=== PATIENT | male | born 1940 | race Caucasian/White ===

== ENCOUNTER 2016-06-03 15:48 | Inpatient (IN) | payer MEDICARE, OTHER ==
[~2016-06-03] VITALS: Ht 182.9 cm; Wt 71.3 kg
[2016-06-03 15:55] VITALS: BP 137/79; PULSE 96; RESP 30; O2SAT 91
--- NOTE | 2016-06-03 16:01 | ED.REPORT ---
HPI-Dyspnea / Wheezing Date of Service Jun 03, 2016 ED Provider: Dr. Santa Espino Patient is a 76-year-old male with a hx of heart attack, who reports to the ED complaining of SOB for the past 2 weeks. He had an appointment with his PCP yesterday, Dr. Silver, and was sent here due to abnormal labs. Patient c/o associated intermittent cough, generalized weakness, and incontinence. He was able to take a nap earlier today but his SOB increases in severity when he lays down in bed. Patient c/o associated lower extremity edema which he has never experienced before. Patient denies fever, chills, chest pain, back pain, vomiting, and diarrhea. Nursing Notes Stated Complaint: SOB Chief Complaint: Respiratory Distress Nursing Notes Reviewed: Yes Allergies: Coded Allergies: No Known Allergies (Verified , 06/03/16) Uncoded Allergies: No Known Allergies (Allergy, Severe, 09/17/04) Scheduled Aspirin (Aspirin) 81 Mg Tablet 81 MG PO HS Doxazosin (Cardura) 8 Mg Tablet 8 MG PO HS General Time Seen by MD: 16:01 Chief Complaint Shortness of breath Hx Obtained From: Patient, Spouse Arrived By: Walk-in Sudden in Onset?: Yes Onset Occurred: More than a week ago... (2 weeks) Symptom Duration: Since onset Severity: Current: No pain currently Recent Healthcare: Recent doctor visit Similar Sx Previous: Yes Past Medical History Past Medical History heart attack Reports: Hypertension Past Surgical History stints Smoking History Unknown if Ever Smoker Social History Other Social History: Ambulatory Status Independent Review of Systems Constitutional: Reports: Weakness - generalized, Denies: Chills, Fever Respiratory: Reports: Non-productive cough, Shortness of breath Cardiovascular: Denies: Chest pain Musculoskeletal: Denies: Back pain Complete sys rev & neg: except as marked. GI: Denies: Diarrhea, Vomiting Male: Reports Incontinence Physical Exam Initial Vital Signs Vital Signs (First) Date Time Temp Pulse Resp B/P Pulse Ox O2 Delivery O2 Flow Rate FiO2 06/03/16 15:55 96 30 137/79 91 Room Air Initial VS: Reviewed, Vital signs normal Head / Eyes: Atraumatic, Normocephalic, PERRL ENT: Mucous membranes moist, Conjunctiva normal, No scleral icterus Lymphatic: No lymphadenopathy Skin: Warm, Dry, No cyanosis Neurologic: Alert, Oriented, Nonfocal Psychiatric: Mood/affect normal, Behavior normal, Normal thought content General/Constitutional: Awake, Alert, Cooperative Neck: Supple, No meningismus, Non-tender Neck Vascular: Positive: JVD moderate Resp Distress / Stridor: Positive: Resp distress mild Wheezing / Retractions: Positive: Wheezing expiratory Rales / Rhonchi: Positive: Rales bilateral up to 1/3 Cardiovascular: Heart rate NL, Regular rhythm, Heart sounds NL, No murmurs Lower Ext Edema: Positive: Bilateral 3+ Abdomen: Atraumatic, Soft, Non-tender, No guarding, No rebound, BS normoactive Interpretation & Diagnostics Lab Results Interpretation Result Diagram: 06/03/16 1616 06/03/16 1621 Test 06/03/16 16:16 06/03/16 16:21 White Blood Count 7.8th/mm3 (3.8-10.1) Red Blood Count 4.57mil/mm3 (4.40-5.80) Hemoglobin 14.4g/dL (13.8-17.2) Hematocrit 40.9% (41.0-50.0) Mean Corpuscular Volume 89.5fL (81-100) Mean Corpuscular Hemoglobin 31.5pg (27.0-35.0) Mean Corpuscular Hemoglobin Concent 35.2% (32.0-37.0) Red Cell Distribution Width 12.9% (12.3-15.4) Platelet Count 207bil/L (150-400) Neutrophils (%) (Auto) 70.1% (40-74) Lymphocytes (%) (Auto) 15.1% (14-46) Monocytes (%) (Auto) 11.8% (4-12) Eosinophils (%) (Auto) 1.7% (0-5) Basophils (%) (Auto) 0.9% (0-3) Magnesium Level 1.9mg/dL (1.6-2.6) Total Bilirubin 0.8mg/dL (0.0-1.2) Aspartate Amino Transf (AST/SGOT) 27U/L (0-50) Alanine Aminotransferase (ALT/SGPT) 30U/L (0-44) Alkaline Phosphatase 93U/L (25-160) Pro-B-Type Natriuretic Peptide 3898pg/mL (0-486) Total Protein 6.7g/dL (6.4-8.4) Albumin 3.7g/dL (3.4-5.0) Hold Saleh Top Tube Received (Received) ECG Interpretation ECG Interpretation: anterior lateral q-waves V1-V6 similar to EKG on 06/01/16 Interpreted by: ED physician Normal ECG Interpretation: Normal ECG w/ rate of... (90), Normal rate, Normal sinus rhythm, No acute ischemic changes X-Ray Chest Interpretation Chest Xray Interpretation: IMPRESSION: 1. Persistent right basilar radiopacities in slightly increased confluence of the left basilar radiopacities when compared with the prior study dated 06/01/16 suggesting worsening infection. 2. Apparent slight decrease in the size of the right pleural effusion which may be positional in nature. Dictated by: Mmai Pedersen M.D. on 06/03/2016 at 16:53 Approved by: Mami Pedersen M.D. on 06/03/2016 at 16:55 View: Portable Interpretation / Wet Read by: Interpret - Radiologist Re-Eval/Medical Decision Med Decision/Clinical Course The patient presents with respiratory distress, he was sent in by his urologist. The patient has not had any medical care and has significant cardiac history, he denies any chest pain. His exam is most consistent with congestive heart failure. Differential diagnoses considered were acute coronary syndrome, congestive heart failure, pneumonia, pulmonary embolus, and influenza. Patient was given Nitropaste and was feeling improved upon admission. He was also given a dose of Lasix in the emergency department. It is possible he had a coronary event couple weeks ago and then developed congestive heart failure although he does not recall having any chest pain. He has an abnormal EKG however we do not have going to compare with, so this could be from his [place] 10 years ago or if something occurred a couple weeks ago. Re-Evaluation/Progress : Time of Eval: 18:10 Re-Evaluation/Progress Note: Pt rechecked. Informed pt of need for admission due to hyponatremia and new onset chf. Blood pressure is slightly improved upon recheck. Pt understands and agrees with plan for admission. All questions addressed. Counseled Regarding: Diagnosis, Lab results, Need for admission Discharge & Departure Impression: Primary Impression: Hyponatremia Additional Impression: CHF (congestive heart failure) Congestive heart failure type: unspecified congestive heart failure type Congestive heart failure chronicity: unspecified congestive heart failure chronicity Qualified Code: I50.9 - Heart failure, unspecified Disposition: ADMITTED TO HOSPITAL Discharge Condition All VS Reviewed: Yes Condition: Stable Referrals: Quincy Avalos MD (PCP) Scribe Attestation Portion of this note were transcribed by Vanessa Kapadia. Dr. Srinivas Conde, personally performed the history, physical exam, and medical decision-making: I reviewed and confirmed the accuracy for the information in the transcribed note. Signed by: ximena Hughes, 06/03/16 0000 copies to: Quincy Avalos MD, Jena M MD Jun 03, 2016 16:01 VANESSA KAPADIA Jun 03, 2016 16:16 Re-Evaluation/Progress : Time of Eval: 18:10 Re-Evaluation/Progress Note: Pt rechecked. Informed pt of need for admission due to hyponatremia and new onset chf. Blood pressure is slightly improved upon recheck. Pt understands and agrees with plan for admission. All questions addressed. Counseled Regarding: Diagnosis, Lab results, Need for admission Discharge & Departure Impression: Primary Impression: Hyponatremia Additional Impression: CHF (congestive heart failure) Congestive heart failure type: unspecified congestive heart failure type Congestive heart failure chronicity: unspecified congestive heart failure chronicity Qualified Code: I50.9 - Heart failure, unspecified Disposition: ADMITTED TO HOSPITAL Discharge Condition All VS Reviewed: Yes Condition: Stable Referrals: Quincy Avalos MD (PCP) Scribkahlil Attestation Portion of this note were transcribed by Vanessa Kapadia. Dr. Srinivas Conde, personally performed the history, physical exam, and medical decision-making: I reviewed and confirmed the accuracy for the information in the transcribed note. Signed by: ximena Hughes, 06/03/16 0000 copies to: Quincy Avalos MD, Jena M MD Jun 03, 2016 16:01 VANESSA KAPADIA Jun 03, 2016 16:16
[2016-06-03] MEDS ORDERED: Nitroglycerin 2% 1 Gm Ointment TOPICAL ONE (16:10)
[2016-06-03 16:29] LABS: BASOPHILS % (AUTO) 0.9 % (0-3); EOSINOPHILS % (AUTO) 1.7 % (0-5); MONOCYTES % (AUTO) 11.8 % (4-12); Mean Corpuscular Hemoglobin 31.5 pg (27.0-35.0); Mean Corpuscular Volume 89.5 fL (81-100); NEUTROPHILS % (AUTO) 70.1 % (40-74); Platelet Count 207 bil/L (150-400)
[2016-06-03 17:01] LABS: TROPONIN T < 0.010 ug/L (0.0-0.011)
--- NOTE | 2016-06-03 17:04 | DRSVH ---
PROCEDURE: X-RAY CHEST ONE VIEW, PORTABLE ([id number]) INDICATIONS: SHORT OF BREATH TECHNIQUE: One view of the chest was acquired. COMPARISON: [facility], CR, XR CHEST 2VW, 06/01/2016, 14:57. FINDINGS: Surgical changes and devices: None. Lungs and pleura: Patchy pulmonary opacities are present in the bilateral lung bases. These are sligh tly increased in extent on the left when compared with the study dated 06/01/16. The small right pleur al effusion has decreased in size when compared with the prior study. Mediastinum: Mediastinal contours appear normal. Heart size is normal. Bones and chest wall: No suspicious bony lesions. Overlying soft tissues appear unremarkable. IMPRESSION: 1. Persistent right basilar radiopacities in slightly increased confluence of the left basilar radiop acities when compared with the prior study dated 06/01/16 suggesting worsening infection. 2. Apparent slight decrease in the size of the right pleural effusion which may be positional in natu re. Dictated by: Mami Pedersen M.D. on 06/03/2016 at 16:53 Approved by: Mami Pedersen M.D. on 06/03/2016 at 16:55
[2016-06-03 17:08] LABS: Magnesium 1.9 mg/dL (1.6-2.6)
[2016-06-03 17:13] VITALS: BP 124/74; PULSE 87; RESP 24; O2SAT 96
[2016-06-03] MEDS ORDERED: Furosemide 10 mg/mL 2 mL Inj IVPUSH ONE (17:50)
[2016-06-03] MEDS ORDERED: ASPI-973 PO (18:10)
[2016-06-03] MEDS ORDERED: CAR8A PO (18:10)
[2016-06-03 18:29] VITALS: BP 124/79; PULSE 86; RESP 25; O2SAT 94
--- NOTE | 2016-06-03 19:39 | PCM.HPMED ---
Subjective Date of Service Jun 03, 2016 Primary Provider: Admitting Physician: Kellen Ware MD Primary Care Physician: Quincy Avalos MD Attending Physician: Kellen Ware MD Chief Complaint: Shortness of breath H[facility] History of present illness 76-year-old man, 2 weeks of shortness of breath, being unable to lie flat and breathe well, edema, presents to ER with respiratory rate 30, 91% on room air. Associated cough, weakness, incontinence. No chest pain no back pain. concurrently he had been seen by Urologist for a refill of doxazosin that he had run out of since 03/2016. urologist noted the new edema ordered CXR and EKG at that time. Despite doxazosin now, ongoing nocturia wearing adult depends and poor uop. At the urologist visit 05/31/2016 he was told PVR was accepatble. baseline low BP at home but he has not seen PCP in several years. ongoing smoking, less the last 2- 3 days due to SOB and edema. dry cough, nonproductive, no sore throat. In the ER Lasix 20, aspirin 325, nitroglycerin 0.5, weight 84 kg, in 2003 83 kg , 2L O2 Review of Systems - none of the following - F/C/sick contact / wt change/ MARTINEZ / lightheaded / dizziness // acid reflux / n/v/diarrhea / bleeding/bruising / leg swelling / change in voiding / yeast infections / rash ambulates FAMILY HX CAD SOCIAL HX smoker MEDICATIONS Scheduled Aspirin (Aspirin) 81 Mg Tablet 81 MG PO HS Doxazosin (Cardura) 8 Mg Tablet 8 MG PO HS Past Medical/Surgical HX Occluded right carotid artery DE 2, diastolic/Systolic CHF / stents Cataracts BPH Right pleural effusion since 06/01/2016 Allergies Coded Allergies: No Known Allergies (Verified , 06/03/16) Uncoded Allergies: No Known Allergies (Allergy, Severe, 09/17/04) PMH Social History Hx Alcohol Use: No Hx Substance Use: No Hx Tobacco Use: No Smoking Status: Unknown if Ever Smoker Exam Vital Signs Vital Sign - Last Date Time Temp Pulse Resp B/P Pulse Ox O2 Delivery O2 Flow Rate FiO2 06/03/16 19:25 86 25 124/79 94 Room Air Lab and Diagnostics Labs Exam on admission 2L NC NAD A and O x 3 mood affect WNL NC/AT no icterus no injected eyes EOMI PERRL /no pharyngeal lesions/ no oral lesions / hearing aides in place Supple neck CTAB equal chest rise / no accessory muscle use / speaks in full sentences / no rrw RRR S1 S2 / no mrg / 2+ radial pulses Soft nt nd + BS no hepatosplenomegaly moderate edema legs and groin areas, no cyanosis no ecchymosis of lower extremities No rash / no jaundice , some excoriation of legs. EDOUARD EKG SR 90, poor R-wave progression, mildly widened QRS, no significant ST changes Trop 0.01 at 4 PM BNP 3898 LFT WNL Imaging PROCEDURE: X-RAY CHEST ONE VIEW, PORTABLE ([id number]) INDICATIONS: SHORT OF BREATH TECHNIQUE: One view of the chest was acquired. COMPARISON: [facility], CR, XR CHEST 2VW, 06/01/2016, 14:57. FINDINGS: Surgical changes and devices: None. Lungs and pleura: Patchy pulmonary opacities are present in the bilateral lung bases. These are slightly increased in extent on the left when compared with the study dated 06/01/16. The small right pleural effusion has decreased in size when compared with the prior study. Mediastinum: Mediastinal contours appear normal. Heart size is normal. Bones and chest wall: No suspicious bony lesions. Overlying soft tissues appear unremarkable. IMPRESSION: 1. Persistent right basilar radiopacities in slightly increased confluence of the left basilar radiopacities when compared with the prior study dated 06/01/16 suggesting worsening infection. 2. Apparent slight decrease in the size of the right pleural effusion which may be positional in nature. 2004 echo, moderate severe LV systolic dysfunction, EF 30-35%, extensive anterior apical and septal infarct, moderate mitral regurgitation, biatrial enlargement Result Diagram: 06/03/16 1616 06/03/16 1621 Assessment & Plan Active issues and reason for admission acute sCHF exacerbation w/ right pl effusion and bilateral pneumonia / infiltrates / smoker --pending resp viral procal sputum culture --azithro for now, no left shift and no leukocytosis, low threshold to dc --s/p lasix x 1 --duonebs --echo pending --lasix 40 Qam trial - dc doxazosin with BP monitoring Associated hyponatremia limit salt/water 1.5L bmp Q6, monitor Elevated glucose --SSI --A1c Chronic issues known prior to admission, present on admission CAD --cont asa BPH/LUTS --trial flomax, f/u Dr. Silver on discharge Diet DM Cardiac DVT prophylaxis lovenox Code full Disposition inpt status Assessment and plan were discussed with patient family. Kellen Ware MD Jun 03, 2016 19:39 Kellen Ware MD Jun 03, 2016 19:39
[2016-06-03] MEDS ORDERED: Ondansetron 2 mg/mL 2 mL Inj IVPUSH PRN (21:00)
[2016-06-03 21:18] VITALS: BP 135/79; PULSE 95; RESP 18; O2SAT 94
[2016-06-03] MEDS: Albuterol-Ipratropium 3 mL Inhalation Solution NEB SCH (21:44)
[2016-06-03 21:46] VITALS: PULSE 92; RESP 18; O2SAT 92
[2016-06-04] VITALS (14 sets, daily range): BP systolic 107–139; BP diastolic 60–80; PULSE 67–102; RESP 17–20; O2SAT 90–96
[2016-06-04 00:11] LABS: TROPONIN T 0.01 ug/L (0.0-0.011)
[2016-06-04] MEDS: Sodium Chloride LOK Flush 10 mL Syringe IVFLUSH SCH ×3 (00:30→16:00)
[2016-06-04 06:29] LABS: Mean Corpuscular Hemoglobin 31.4 pg (27.0-35.0); Mean Corpuscular Volume 91.3 fL (81-100)
[2016-06-04 07:19] LABS: TROPONIN T < 0.010 ug/L (0.0-0.011)
[2016-06-04] MEDS ORDERED: Furosemide 10 mg/mL 4 mL Inj IVPUSH SCH (08:30)
[2016-06-04] MEDS: Albuterol-Ipratropium 3 mL Inhalation Solution NEB SCH ×3 (08:41→20:30)
[2016-06-04] MEDS: Furosemide 10 mg/mL 4 mL Inj IVPUSH SCH ×2 (09:05→21:16)
--- NOTE | 2016-06-04 10:57 | PCM.PNMED ---
Subjective Date of Service Jun 04, 2016 Subjective I enjoyed meeting with Mr. Farias and his today. They have varying opinions about medical care and medication, despite being for over 50 years and otherwise getting along well. He is anti-medication and she is disappointed to report that he stopped all his CHF modifying medications several years ago because he felt like they were not doing anything. He then stopped following up with any tool carrier or primary care doctor for the same reasons. Now he is admitted with quite severe CHF and still maintains that he does not like medicines and does not think they should be taken. He is very anti-drug company, and believes the medical establishment is all compromised. Despite all that he is very pleasant and hoping to feel better with increasing doses of Lasix. He says he feels about the same today and that the shortness of breath prevented him sleeping well last night. His weight appears to be stable and so the 40 mg IV Lasix does not appear to have made much much of a dent in his CHF. Exam Vital Signs Vital Sign - Last Date Time Temp Pulse Resp B/P Pulse Ox O2 Delivery O2 Flow Rate FiO2 06/04/16 07:00 90 18 139/79 92 Nasal Cannula 2.00 06/04/16 06:57 36.2 Intake and Output 06/03/16 06/03/16 06/04/16 Cumulative From/Thru 15:00 23:00 07:00 06/03/16 15:55 - 06/04/16 06:05 Intake Total 380 ml 380 ml Output Total 1100 ml 1100 ml Balance -720 ml -720 ml Intake Oral 380 ml 380 ml Output Urine Total 1100 ml 1100 ml Exam Alert and oriented, no apparent distress Heart is regular rate and rhythm without murmur Lungs have left basilar crackles There is trace penile edema There is trace ankle edema bilaterally IVs and Medications Medications Reviewed: Medications were reviewed in detail Lab and Diagnostics Result Diagram: 06/04/16 0505 06/04/16 0505 Assessment & Plan Active issues and reason for admission acute sCHF exacerbation w/ right pl effusion and bilateral / infiltrates / smoker -- Respiratory viral panel and pneumococcal tests are negative -- Stop azithromycin based on normal white blood count, pro-calcitonin less than 0.05 and lack of infectious symptoms. --s/p lasix x 1, will increase dose to 80 mg twice a day IV --duonebs --echo pending --lasix 80 mg IV twice a day trial - dc doxazosin with BP monitoring -- Consider cardiology consultation. Troponins have been normal. -- Add DAVID inhibitor and beta ernesto at a pace that the patient will agree and accept Associated hyponatremia limit salt/water 1.5L bmp daily, monitor Elevated glucose --SSI --A1c is normal Chronic issues known prior to admission, present on admission CAD --cont asa BPH/LUTS --trial flomax, f/u Dr. Silver on discharge Diet DM Cardiac DVT prophylaxis lovenox Code full Disposition inpt status Assessment and plan were discussed with patient family. VTE Mechanical Devices: Venous Foot Pump Resuscitation Status: CPR: Attempt Resuscitation Gissell Gunn MD Jun 04, 2016 08:29
[2016-06-05] VITALS (13 sets, daily range): BP systolic 105–122; BP diastolic 58–78; PULSE 78–94; RESP 15–22; O2SAT 90–95
[2016-06-05] MEDS: Sodium Chloride LOK Flush 10 mL Syringe IVFLUSH SCH ×4 (00:30→23:41)
[2016-06-05 07:24] LABS: APPEARANCE,URINE CLEAR (CLEAR,HAZY); COLOR,URINE STRAW (YELLOW); OCCULT BLOOD,URINE TRACE (NEGATIVE); PH,URINE 5.5 (5.0-8.0); UROBILINOGEN,URINE NORMAL (NORMAL)
[2016-06-05] MEDS: Albuterol-Ipratropium 3 mL Inhalation Solution NEB SCH ×4 (07:27→20:17)
[2016-06-05] MEDS: Furosemide 10 mg/mL 4 mL Inj IVPUSH SCH (08:40)
--- NOTE | 2016-06-05 09:12 | PCM.PNMED ---
Subjective Date of Service Jun 05, 2016 Subjective He is in a much better mood today, now that he is breathing better. He has obviously been diuresing well but somehow is experiencing a flare of his wheezing. His oxygen this morning was turned up from 2-3 L. He is laughing and happy. His echocardiogram is still pending. Input was 500 with output of 3000 yesterday. Overnight he had a 16 beat run of V. tach so a magnesium level is pending for this morning. His electrolytes otherwise are normal. His BNP is still elevated at 5201. Exam Vital Signs Vital Sign - Last Date Time Temp Pulse Resp B/P Pulse Ox O2 Delivery O2 Flow Rate FiO2 06/05/16 07:28 89 22 91 Nasal Cannula 3.00 06/05/16 05:33 36.4 116/58 Intake and Output 06/04/16 06/04/16 06/05/16 Cumulative From/Thru 15:00 23:00 07:00 06/03/16 15:55 - 06/05/16 06:42 Intake Total 1000 ml 500 ml 1880 ml Output Total 1625 ml 3075 ml 5800 ml Balance -625 ml -2575 ml -3920 ml Intake Oral 1000 ml 500 ml 1880 ml Output Urine Total 1625 ml 3075 ml 5800 ml Exam Alert and oriented 3, in no apparent distress, obviously breathing better. Heart is regular rate and rhythm without murmur. Lungs have bilateral crackly wheezing. Extremities have no ankle edema. IVs and Medications Medications Reviewed: Medications were reviewed in detail Lab and Diagnostics Result Diagram: 06/04/16 0505 06/05/16 0500 Assessment & Plan Active issues and reason for admission acute sCHF exacerbation w/ right pl effusion and bilateral / infiltrates / smoker -- Respiratory viral panel and pneumococcal tests are negative -- Stopped azithromycin yesterday based on normal white blood count, pro- calcitonin less than 0.05 and lack of infectious symptoms. -- Doing better on the increased IV Lasix since yesterday, despite the rising BNP --duonebs --echo pending, was not able to be done yesterday --lasix 80 mg IV twice a day has been effective - dc doxazosin with BP monitoring -- Consider cardiology consultation. Troponins have been normal. -- Started on low-dose lisinopril and metoprolol yesterday. Associated hyponatremia -- Sodium now 131. limit salt/water 1.5L bmp daily, monitor Elevated glucose --SSI --A1c is normal Chronic issues known prior to admission, present on admission CAD --cont asa BPH/LUTS --trial flomax, f/u Dr. Silver on discharge Diet DM Cardiac DVT prophylaxis lovenox Code full Disposition inpt status, with discharge expected in the next 1-2 days. Assessment and plan were discussed with patient family. Link Gunn M.D. VTE Mechanical Devices: Intermittant Pneumatic CD Resuscitation Status: CPR: Attempt Resuscitation Gissell Gunn MD Jun 05, 2016 08:32
--- NOTE | 2016-06-05 20:52 | DRSVH ---
[facility] [address] [place] [address] Echocardiogram Report Name: CASPER TOLEDO CStudy Date : 06/05/2016 Height: 72 in Hospital Exam Location: [facility] Weight: 186 lb Gender: Male BSA: 2.1 m2 : 1940 Age: 76 yrs BP: 116/58 mmHg Reason For Study: CHF History: PTCA Ordering Physician: Performed By: Tarah Sow Referring Physician: Quincy Avalos Interpretation Summary Normal sinus rhythm. Mildly dilated LV; normal wall thickness; there is severe global hypokinesis with akinesis of the septum. The best motion is demonstrated by basal inferolateral segment. EF is 20-25%. Restrictive filling pattern consistent with advanced diastolic dysfunction. Severely dilated atria. Mitral valve leaflets are normal; there is moderate central MR. There is moderate central tricuspid regurgitation. Estimated PA systolic pressure is 58 mm Hg assuming RA pressure of 15 mm hg. Compared to prior study performed 2006 LV is more dilated. End diastolic dimension arun from 5.4 cm to 6.1 cm. EPSS arun from 1.2 cm to 2 cm consistent with worsening cardiomyopathy. EF is down from 30-35% to 20-25%. Diastolic dysfunction progressed from stage I to stage III. MR progressed from mild to moderate. Procedure: A two-dimensional transthoracic echocardiogram with color flow and Doppler was performed. The study quality was technically adequate. A contrast injection of Definity was performed to improve assessment of LV function. Contrast was injected into an intravenous site in the left arm. A total of 5 cc of contrast was given. Comparison is made with the echocardiogram of 12-06-2006. The patient was in sinus during the exam. The patient did well with the Definity Contrast. Left Ventricle: The left ventricle is mildly dilated. Left ventricular wall thickness is normal. Left ventricular systolic function is severely reduced. Right Ventricle: The right ventricle is normal in size and function. Atria: Both atria are severely dilated. There is no Doppler evidence for an atrial septal defect. Mitral Valve: The mitral valve leaflets appear mildly thickened, but open well. There is mild mitral annular calcification. There is moderate mitral regurgitation. Aortic Valve: The aortic valve is trileaflet. There is mild aortic valve sclerosis. The aortic valve opens well. No aortic regurgitation is present. Tricuspid Valve: The tricuspid valve leaflets are thin and pliable. There is moderate tricuspid regurgitation. The right ventricular systolic pressure is estimated at 58 mmHg assuming a right atrial pressure of 15 mm Hg. Pulmonic Valve: The pulmonic valve leaflets are thin and pliable; valve motion is normal. There is a trace or physiologic amount of pulmonic regurgitation. Great Vessels: The aortic root is normal size. The dimensions of the ascending aorta are normal. The pulmonary artery is normal size. The IVC is dilated (diameter is greater than 2.1 cm) and it collapses less than 50% with a sniff. This suggests a high right atrial pressure of 15 mm Hg. Pericardium/ Pleura There is no pericardial effusion. There is a small right-sided pleural effusion. MMode/2D Measurements & Calculations LVIDd: 6.1 cm LA dimension: 4.8 cm RA long axis LVOT diam LVIDs: 4.6 cm FS: 24.7 % LA A2 area: 32.9 cm RA area AoV Opening EPSS: 2.0 cm LA A4 area: 31.1 cm IVSd: 0.76 cm LA length (vol): 6.9 cm: 29.0 cm Ao root diam LVPWd: 0.81 cm LA vol: 125.9 ml RA vol LA vol index : 108.ml asc Aorta RA Diam: 2.8 cm : 52.6 mm/ IVC diam: 2.6 cm RVDd major : 7.2 cm LV hoffman. diameter/BSA LV sys. diameter/BSA RVD2 (mid) (cm/m^2): 3.0 (cm/m^2): 2.2 : 3.0 cm Doppler Measurements & Calculations Ao V2 max MV E max bertin MV E/A: 2.1 TR max bertin : 128.8 cm/sec : 126.9 cm/sec Med Peak E' Bertin : 326.0 cm/sec Ao max P.6 mmHgMV A max bertin TR max PG Ao mean PG : 61.0 cm/sec E/E' med: 26.7 : 42.5 mmHg MV P1/2t: 50.0 msec Lat Peak E' Bertin PA V2 max LVOT Max Bertin MR ERO: 0.27 cm2 : 69.2 cm/sec : 97.6 cm/sec E/E' lat: 18.6 PA mean PG CLAUDIA(I,D): 2.3 cm E/e' average : 0.96 mmHg sev ratio: 0.71 PA Accel Time MV A dur : 0.06 sec : 0.12 sec MV P1/2t max bertin Ao V2 mean LV V1 max PG MR flow rate : 96.3 cm/sec : 135.5 cm3/sec MVA(P1/2t): 4.4 cm2Ao V2 VTI: 22.4 cm LV V1 VTI MR PISA radius CLAUDIA(V,D): 2.5 cm2 : 15.9 cm PA V2 mean CLAUDIA indexed to BSA : 46.2 cm/sec (cm^2/m^2): 1.1 Reading Physician:08:51 PM
[2016-06-05] MEDS: Furosemide 10 mg/mL 2 mL Inj IVPUSH SCH (22:07)
[2016-06-06] VITALS (11 sets, daily range): BP systolic 93–133; BP diastolic 52–83; PULSE 75–94; RESP 16–20; O2SAT 92–97
[2016-06-06] MEDS: Albuterol-Ipratropium 3 mL Inhalation Solution NEB SCH ×4 (08:08→15:51)
[2016-06-06] MEDS: Furosemide 10 mg/mL 2 mL Inj IVPUSH SCH ×2 (09:23→20:44)
[2016-06-06] MEDS: Sodium Chloride LOK Flush 10 mL Syringe IVFLUSH SCH ×3 (09:24→20:45)
--- NOTE | 2016-06-06 19:12 | PCM.PNMED ---
Subjective Date of Service Jun 06, 2016 Subjective Patient reports that he is feeling significantly better than the previous day. He states that he does not feel as short of breath, and feels that his breathing is improved. Pt denies any chest pain or pressure. Pt states that he has not seen a doctor in over a decade, and is not interested in being seen by more doctors. Pt's states that he is improving overall. Exam Vital Signs Vital Sign - Last Date Time Temp Pulse Resp B/P Pulse Ox O2 Delivery O2 Flow Rate FiO2 06/06/16 17:53 36.6 87 16 121/66 92 Nasal Cannula 5.00 Intake and Output 06/05/16 06/05/16 06/06/16 Cumulative From/Thru 15:00 23:00 07:00 06/03/16 15:55 - 06/06/16 05:05 Intake Total 300 ml 2180 ml Output Total 1325 ml 7125 ml Balance -1025 ml -4945 ml Intake Oral 300 ml 2180 ml Output Urine Total 1325 ml 7125 ml Exam General: No acute distress, well-developed, well-nourished, appropriately interactive HEENT: Nasal cannula in place. Normocephalic, atraumatic. External ears without defect. Pupils equal, round, and reactive to light and accommodation. Anicteric sclerae, moist conjunctivae Neck: Supple with full range of motion. Cardiovascular: Regular rate and rhythm with no murmurs, rubs, or gallops appreciated Pulmonary: Crackles in the lower bases, no wheezing auscultated. Normal respiratory effort with no use of accessory muscles. Abdomen: Bowel tones present. Soft, nontender, nondistended. Extremities: No clubbing, cyanosis, edema Skin: Normal temperature, turgor, and texture; no rash, ulcers, or subcutaneous nodules appreciated. Psychiatric: Normal mood and affect. Alert and oriented to person, place, and time. IVs and Medications Medications Reviewed: Medications were reviewed in detail Lab and Diagnostics Result Diagram: 06/04/16 0505 06/06/16 0527 X-Rays, CTs and MRIs PROCEDURE: X-RAY CHEST ONE VIEW, PORTABLE INDICATIONS: SHORT OF BREATH TECHNIQUE: One view of the chest was acquired. COMPARISON: [facility], CR, XR CHEST 2VW, 06/01/2016, 14:57. FINDINGS: Surgical changes and devices: None. Lungs and pleura: Patchy pulmonary opacities are present in the bilateral lung bases. These are slightly increased in extent on the left when compared with the study dated 06/01/16. The small right pleural effusion has decreased in size when compared with the prior study. Mediastinum: Mediastinal contours appear normal. Heart size is normal. Bones and chest wall: No suspicious bony lesions. Overlying soft tissues appear unremarkable. IMPRESSION: 1. Persistent right basilar radiopacities in slightly increased confluence of the left basilar radiopacities when compared with the prior study dated 06/01/16 suggesting worsening infection. 2. Apparent slight decrease in the size of the right pleural effusion which may be positional in nature. Dictated by: Mami Pedersen M.D. on 06/03/2016 at 16:53 Approved by: Mami Pedersen M.D. on 06/03/2016 at 16:55 Cardiac Echo Impressions Interpretation Summary Normal sinus rhythm. Mildly dilated LV; normal wall thickness; there is severe global hypokinesis with akinesis of the septum. The best motion is demonstrated by basal inferolateral segment. EF is 20-25%. Restrictive filling pattern consistent with advanced diastolic dysfunction. Severely dilated atria. Mitral valve leaflets are normal; there is moderate central MR. There is moderate central tricuspid regurgitation. Estimated PA systolic pressure is 58 mm Hg assuming RA pressure of 15 mm hg. Compared to prior study performed 2006 LV is more dilated. End diastolic dimension arun from 5.4 cm to 6.1 cm. EPSS arun from 1.2 cm to 2 cm consistent with worsening cardiomyopathy. EF is down from 30-35% to 20-25%. Diastolic dysfunction progressed from stage I to stage III. MR progressed from mild to moderate. Assessment & Plan Acute systolic heart CHF exacerbation w/ right pl effusion -- Respiratory viral panel and pneumococcal tests are negative --Continue with duonebs --Echo demonstrating decreased EF of 20-25%, with worsening MR and TR --Continue lasix 80 mg IV twice a day --Cardiology consulted. -- Continue on low-dose lisinopril and metoprolol Acute hyponatremia, etiology unknown -- Sodium now 130. --Continue to limit salt/water 1.5L --bmp daily, monitor Elevated glucose --SSI --A1c is normal Chronic issues known prior to admission, present on admission CAD --cont asa BPH/LUTS --Continue flomax, f/u Dr. Silver on discharge Diet DM Cardiac DVT prophylaxis lovenox Code full VTE Mechanical Devices: Intermittant Pneumatic CD Resuscitation Status: CPR: Attempt Resuscitation Time spent 25 minutes Attending Statement I have seen and evaluated patient at bedside in addition to directly supervising care provided by resident physician. I agree with above documentation. Significant hypoxia , not improving with echocardiogram supporting a decline in cardiac functioning. Diuresis has not yet been effective in significantly improving respiratory function. Cardiology consults for further consideration of pt's respiratory failure, currently resistant to medical therapies. Pleural effusion noted previously on XR study may be revaluated as well for possible pleurocentesis should respiratory function remain poor. Dalila Johnson DO Jun 06, 2016 19:12 Zeus Chi DO Jun 06, 2016 22:24
[2016-06-07] VITALS (13 sets, daily range): BP systolic 98–128; BP diastolic 64–84; PULSE 60–93; RESP 16–26; O2SAT 89–93
[2016-06-07 07:36] LABS: BASOPHILS % (AUTO) 0.2 % (0-3); EOSINOPHILS % (AUTO) 0.1 % (0-5); MONOCYTES % (AUTO) 8.7 % (4-12); Mean Corpuscular Hemoglobin 31.2 pg (27.0-35.0); Mean Corpuscular Volume 91.3 fL (81-100); NEUTROPHILS % (AUTO) 84.1 % (40-74); Platelet Count 209 bil/L (150-400)
[2016-06-07] MEDS: Furosemide 10 mg/mL 2 mL Inj IVPUSH SCH (08:33)
[2016-06-07] MEDS: Sodium Chloride LOK Flush 10 mL Syringe IVFLUSH SCH ×3 (08:34→21:21)
[2016-06-07] MEDS: Albuterol-Ipratropium 3 mL Inhalation Solution NEB SCH ×3 (09:14→19:51)
--- NOTE | 2016-06-07 11:50 | PCM.CHPCAR ---
Consult Subjective Date of service Jun 07, 2016 Date of admit Jun 03, 2016 at 18:50 Provider Requesting Consult Primary Care Physician Primary Care Provider: Quincy Avalos MD Chief Complaint Shortness of breath and fatigue History of Present Illness Ld Farias is a 76 year old male with past medical history significant for 2 myocardial infarctions with PTCA with drug-eluting stent of acute margin of RCA bare metal stenting of proximal RCA in September 2003, heart failure with reduced ejection fraction, [id number] smoking history, and medication noncompliance who presents with 2 weeks of increasing shortness of breath. Patient states that over the last 2-3 weeks he has had increasing shortness of breath and inability to lie flat when sleeping. He has been sleeping in his recliner. He did note lower extremity edema prior to hospitalization which has since resolved. He also endorses a productive cough but denies fever, chills, nausea , vomiting, chest pain or pressure, palpitations, or dizziness. He also notes decreased appetite and increasing fatigue over the last 6 months to a year. He is unable to walk more than a block without becoming fatigued and notes that stairs have become more difficult for him. Patient's last cardiology visit was in [address] Conte at which time he was on lisinopril 20 mg daily, metoprolol succinate 25 mg daily, aspirin 81 mg daily, and simvastatin 10 mg daily. He states he has not taken these medications in over 2 years and has not followed with cardiology since 2011. A year ago he was started on doxazosin for BPH and continues on this and aspirin as his only two home medications. Since admission patient has been diuresed with furosemide 80 mg twice a day and is currently net -8 L during hospitalization. Patient continues to require supplemental O2 currently on 2 L nasal cannula. He does not use oxygen at home. He has never had PFTs or any pulmonology workup regardless of his 70-pack -year history. Repeat echocardiogram was completed that showed a worsening EF of 20-25% from prior of 35% when patient was compliant with medications. Review of Systems Review of Systems Comprehensive review of systems was conducted with the patient and found to be negative except as noted above in HPI. PMH Past Medical History # Coronary artery disease status post stenting # Acute heart failure with reduced ejection fraction # History of 2 myocardial infarctions # Mitral regurgitation # Right carotid artery occlusion per MRA in 2004 # Hyperlipidemia # Hypertension Past Surgical History # PTCA with drug-eluting stenting of acute margin of RCA and bare-metal stenting of proximal RCA September 2003. Hx Diabetes: NoBedside Blood Glucose: 113 Scheduled Aspirin (Aspirin) 81 Mg Tablet 81 MG PO HS (Reported) Doxazosin (Cardura) 8 Mg Tablet 8 MG PO HS (Reported) Current Inpatient Medications Current Medications Furosemide 80 mg BID IVPUSH Last administered on 06/07/16t 08:33; Admin Dose 80 MG; Start 06/05/16 at 20:30 Allergies: Coded Allergies: No Known Allergies (Verified , 06/03/16) Uncoded Allergies: No Known Allergies (Allergy, Severe, 09/17/04) Social History Occupation: retiredHx Alcohol Use: NoHx Substance Use: NoHx Tobacco Use: Yes Smoking Status: Current Every Day Smoker Years of Smokin Living Arrangement: with Family Exam Vital Signs Vital Sign - Last Date Time Temp Pulse Resp B/P Pulse Ox O2 Delivery O2 Flow Rate FiO2 06/07/16 05:38 36.6 60 16 118/78 92 Nasal Cannula 3.00 Intake and Output 06/06/16 06/06/16 06/07/16 Cumulative From/Thru 15:00 23:00 07:00 06/03/16 15:55 - 06/07/16 06:37 Intake Total 300 ml 558 ml 300 ml 3338 ml Output Total 1625 ml 300 ml 2200 ml 50691 ml Balance -1325 ml 258 ml -1900 ml -7912 ml Intake Oral 300 ml 558 ml 300 ml 3338 ml Output Urine Total 1625 ml 300 ml 2200 ml 44336 ml # Bowel Movements 1 0 1 Objective General: No acute distress, well-developed, well-nourished, appropriately interactive HEENT: Nasal cannula in place. Normocephalic, atraumatic. External ears without defect. Pupils equal, round, and reactive to light and accommodation. Moist conjunctivae. Oropharynx with moist mucosa. Cardiovascular: Regular rate and rhythm with no murmurs, rubs, or gallops appreciated. JVP measured at 10 cm. Pulmonary: Mild bilateral crackles noted at the base of lungs. No expiratory wheezes auscultated. Patient has a productive cough. Normal respiratory effort with no use of accessory muscles. Abdomen: Bowel tones present. Soft, nontender, nondistended. Extremities: No clubbing, cyanosis, edema, appreciated. Skin: Normal temperature, turgor, and texture; no rash, ulcers, or subcutaneous nodules appreciated. Neurology: No focal deficits. Normal gait. Psychiatric: Normal mood and affect. Alert and oriented to person, place, and time. Lab and Diagnostics Result Diagram: 06/07/16 0710 06/07/16 0710 X-Rays, CTs and MRIs X-RAY CHEST ONE VIEW, PORTABLE IMPRESSION: 1. Persistent right basilar radiopacities in slightly increased confluence of the left basilar radiopacities when compared with the prior study dated 06/01/16 suggesting worsening infection. 2. Apparent slight decrease in the size of the right pleural effusion which may be positional in nature. Dictated by: Mami Pedersen M.D. on 06/03/2016 at 16:53 Approved by: Mami Pedersen M.D. on 06/03/2016 at 16:55 Additional Diagnostics: Echocardiogram Report Interpretation Summary Normal sinus rhythm. Mildly dilated LV; normal wall thickness; there is severe global hypokinesis with akinesis of the septum. The best motion is demonstrated by basal inferolateral segment. EF is 20-25%. Restrictive filling pattern consistent with advanced diastolic dysfunction. Severely dilated atria. Mitral valve leaflets are normal; there is moderate central MR. There is moderate central tricuspid regurgitation. Estimated PA systolic pressure is 58 mm Hg assuming RA pressure of 15 mm hg. Compared to prior study performed 2006 LV is more dilated. End diastolic dimension arun from 5.4 cm to 6.1 cm. EPSS arun from 1.2 cm to 2 cm consistent with worsening cardiomyopathy. EF is down from 30-35% to 20-25%. Diastolic dysfunction progressed from stage I to stage III. MR progressed from mild to moderate. Reading Physician:08:51 PM Assessment & Plan Assessment Ld Farias is a 76 year old male with past medical history significant for 2 myocardial infarctions with PTCA with drug-eluting stent of acute margin of RCA bare metal stenting of proximal RCA in September 2003, heart failure with reduced ejection fracture, [id number] smoking history, and medication noncompliance who presents with 2 weeks of increasing shortness of breath. # Acute on systolic heart failure (heart failure with reduced ejection fraction) : secondary to ischemic cardiomyopathy as noted with anterior and lateral extensive Q waves, suggesting prior completed infarctions. Etiology of the exacerbation is noncompliance with medications for the last 3-4 years. Echo on 06/05/16 revealed an EF of 20-25% decrease from 30-35% from prior study. He is NYHA class IIIb, ACC stage C. He appears hypervolemic on exam today despite having good diuresis of 10kg weight loss since admission. Plan and recommendation: - Stop carvedilol and start metoprolol succinate 50 mg BID to reduce risk of bronchospasm in this patient who probably has significant COPD from 70 pack year smoking history - Continue lisinopril 2.5 mg daliy and consider increasing over the next few days - Switch furosemide from IV 80mg bid to oral 80mg bid - Start spironolactone 12.5 mg daily. - Suggest outpatient cardiac rehabilitation. - ICD placement not applicable at this time as patient has not been medically optimized. Patient anyways not interested in ICD placement # Coronary artery disease status post PTCA with drug-eluting stenting of acute margin of RCA and bare-metal stenting of proximal RCA September 2003. Plan: - Treatment as above. - Aspirin 81 mg daily. - Start atorvastatin 80 mg at bedtime # Non-sustained VT: noted on telemetry. - Metoprolol as above # Right carotid artery occlusion by MRA in 2004. Management as CAD above. # Hyperlipidemia: as above # Hypertension: as above. # Presumed COPD and smoking: patient has 70 pack year smoking history. He states that he has decided to quit smoking. Will monitor as outpatient and consider PFTs. VTE Mechanical Devices: Intermittant Pneumatic CD Resuscitation Status: CPR: Attempt Resuscitation Attending Statement I saw, examined, and evaluated the patient with Dr. Carmela Fuentes on 06/07/2016 and agree with the note as above along with my edits. CARMELA FUENTES DO Jun 07, 2016 08:55 Michoacano Camara MD Jun 07, 2016 11:50
--- NOTE | 2016-06-07 13:34 | DRSVH ---
PROCEDURE: X-RAY CHEST ONE VIEW, PORTABLE ([id number]) INDICATIONS: worsening cough TECHNIQUE: One view of the chest was acquired. COMPARISON: [facility], CR, XR CHEST 1VW (PORTABLE), 06/03/2016, 16:17. [facility], CR, XR CHEST 2VW, 06/01/2016, 14:57. FINDINGS: Surgical changes and devices: None. Lungs and pleura: Persistent pulmonary edema and increase in small right pleural effusion. Persisten t right basilar airspace opacity. No pneumothorax. Mediastinum: Mediastinal contours appear normal. Heart size is normal. Bones and chest wall: No suspicious bony lesions. Overlying soft tissues appear unremarkable. IMPRESSION: 1. Persistent pulmonary edema. 2. Slight increase in size of small right pleural effusion with right basilar airspace opacity consis tent with compressive atelectasis, patchy pulmonary edema and/or pneumonia. Continued radiographic huang rveillance to resolution is recommended. Dictated by: Lucien Blackburn RRA Interpreted: Kenisha Last MD on 06/07/2016 at 13:32 Transcribed by: MARILYN on 06/07/2016 at 13:34 Approved by: Kenisha Last M.D. on 06/08/2016 at 10:03
[2016-06-07] MEDS: MeTOProlol XL 50 mg ER24 Tablet PO SCH ×2 (14:24→20:30)
--- NOTE | 2016-06-07 17:50 | PCM.PNMED ---
Subjective Date of Service Jun 07, 2016 Subjective Patient reports no change in his symptoms from the previous day. He states that he continues to have some shortness of breath and does not feel he can discontinue the oxygen yet. Patient reports that he continues to have a productive cough, and feels quite fatigued today. Patient states that he has been tolerating his diet well, and denies any nausea vomiting or diarrhea. Patient states that last night was the first time he was able to get any sleep. Patient denies any chest pain or pressure. Exam Vital Signs Vital Sign - Last Date Time Temp Pulse Resp B/P Pulse Ox O2 Delivery O2 Flow Rate FiO2 06/07/16 05:38 36.6 60 16 118/78 92 Nasal Cannula 3.00 Intake and Output 06/06/16 06/06/16 06/07/16 Cumulative From/Thru 15:00 23:00 07:00 06/03/16 15:55 - 06/07/16 06:37 Intake Total 300 ml 558 ml 300 ml 3338 ml Output Total 1625 ml 300 ml 600 ml 9650 ml Balance -1325 ml 258 ml -300 ml -6312 ml Intake Oral 300 ml 558 ml 300 ml 3338 ml Output Urine Total 1625 ml 300 ml 600 ml 9650 ml # Bowel Movements 1 0 1 Exam General: No acute distress, well-developed, well-nourished, appropriately interactive HEENT: Nasal cannula in place Normocephalic, atraumatic. External ears without defect. Pupils equal, round, and reactive to light and accommodation. Moist conjunctivae. Oropharynx with moist mucosa. Cardiovascular: Regular rate and rhythm with no murmurs, rubs, or gallops appreciated Pulmonary: Mild bilateral crackles noted at the base of lungs. No expiratory wheezes auscultated. Patient has a productive cough.Normal respiratory effort with no use of accessory muscles. Abdomen: Bowel tones present. Soft, nontender, nondistended. Extremities: No clubbing, cyanosis, edema, appreciated. Skin: Normal temperature, turgor, and texture; no rash, ulcers, or subcutaneous nodules appreciated. Psychiatric: Normal mood and affect. Alert and oriented to person, place, and time. IVs and Medications Medications Reviewed: Medications were reviewed in detail Lab and Diagnostics Result Diagram: 06/04/16 0505 06/06/16 0527 X-Rays, CTs and MRIs PROCEDURE: X-RAY CHEST ONE VIEW, PORTABLE INDICATIONS: SHORT OF BREATH TECHNIQUE: One view of the chest was acquired. COMPARISON: [facility], CR, XR CHEST 2VW, 06/01/2016, 14:57. FINDINGS: Surgical changes and devices: None. Lungs and pleura: Patchy pulmonary opacities are present in the bilateral lung bases. These are slightly increased in extent on the left when compared with the study dated 06/01/16. The small right pleural effusion has decreased in size when compared with the prior study. Mediastinum: Mediastinal contours appear normal. Heart size is normal. Bones and chest wall: No suspicious bony lesions. Overlying soft tissues appear unremarkable. IMPRESSION: 1. Persistent right basilar radiopacities in slightly increased confluence of the left basilar radiopacities when compared with the prior study dated 06/01/16 suggesting worsening infection. 2. Apparent slight decrease in the size of the right pleural effusion which may be positional in nature. Dictated by: Mami Pedersen M.D. on 06/03/2016 at 16:53 Approved by: Mami Pedersen M.D. on 06/03/2016 at 16:55 Cardiac Echo Impressions Interpretation Summary Normal sinus rhythm. Mildly dilated LV; normal wall thickness; there is severe global hypokinesis with akinesis of the septum. The best motion is demonstrated by basal inferolateral segment. EF is 20-25%. Restrictive filling pattern consistent with advanced diastolic dysfunction. Severely dilated atria. Mitral valve leaflets are normal; there is moderate central MR. There is moderate central tricuspid regurgitation. Estimated PA systolic pressure is 58 mm Hg assuming RA pressure of 15 mm hg. Compared to prior study performed 2006 LV is more dilated. End diastolic dimension arun from 5.4 cm to 6.1 cm. EPSS arun from 1.2 cm to 2 cm consistent with worsening cardiomyopathy. EF is down from 30-35% to 20-25%. Diastolic dysfunction progressed from stage I to stage III. MR progressed from mild to moderate. Assessment & Plan Acute systolic heart CHF exacerbation likely secondary to noncompliance, present on admission -Echo demonstrating decreased EF of 20-25%, with worsening MR and TR -Cardiology consulted, we appreciate their input. -Per Cardiology, pt to start metoprolol 50mg BID, Lisinopril 2.5mg daily, Lasix 80mg BID PO, Spironolactone 12.5mg daily.Also recommend Cardiac Rehab -Patient has diuresed a net of 8 L during this hospitalization Acute hypoxia with bilateral basilar opacities seen on x-ray, present on admission, ongoing -Respiratory viral panel and pneumococcal tests are negative -Slight leukocytosis present today -Continue with duonebs -Continue to wean oxygen as able -CXR repeated today -Labs ordered CRP, Procalcitonin, UA -Possible cause could be infectious or COPD( pt has 70 pack year smoking hx and continues to smoke) -ID has been consulted -Pt continues to require supplemental O2, and does not use O2 at home Acute nonsustained asymptomatic VT Per cardiology patient to start metoprolol 50 mg twice a day Acute hyponatremia, etiology unknown, chronicity unknown -Continues to be low, but stable -No previous records to compare if this is baseline for patient, and he does not get regular medical care -Continue to limit salt/water 1.5L -Continue to monitor BMP daily Mildly elevated glucose, present on admission -A1C is normal -Recommend outpatient follow up Chronic issues CAD -Per Cardiology, continue 81 mg aspirin and start atorvastatin 80 mg daily at bedtime BPH/LUTS -Continue flomax, f/u Dr. Silver on discharge Diet DM Cardiac DVT prophylaxis lovenox Code full VTE Mechanical Devices: Intermittant Pneumatic CD Resuscitation Status: CPR: Attempt Resuscitation Attending Statement The patient was seen and examined together with Dr. Johnson on 06/07/2016 and I agree with the history, exam and plan as outlined in the note above. Dalila Johnson DO Jun 07, 2016 06:50 Don Pardo MD Jun 08, 2016 10:24
--- NOTE | 2016-06-07 20:29 | CONS ---
[address] [address] CONSULTATION REPORT PATIENT: CASPER TOLEDO : 1940 MR#: [id number] ADMIT: 06/03/2016 JOB ID: [id number] DATE OF SERVICE: 06/07/[address] Johnson for this consult. REASON FOR CONSULT: Possible pulmonary infection in a COPD patient. HISTORY OF PRESENT ILLNESS: The patient is a 76-year-old gentleman with longstanding history of cardiac disease as well as COPD. He reports he has been a significant cigarette smoker for 70 years and quit the day he was admitted to the hospital which was June 03, four days ago. He reports that he has been largely noncompliant with his cardiac drugs and has not had an appointment with his tinsel machine operator for followup for at least a couple of years. He notes that over the past couple of weeks he has been very short of breath. He is normally fairly short of breath and has difficulty with catching his breath even walking out to the mailbox, but it has been much worse the last couple of weeks. He is unable to lie down flat and breathe well and has noticed some edema in his lower extremities. He came to the ED with respiratory distress, a respiratory rate in the 30s, and the evidence of hypoxia. He notes he has had a bit of a cough in association with this, but it has largely been a dry cough. He reports he has been continuing to smoke right up until the day of admission, and that he has had no significant fevers, chills, sore throat, or sputum production. He has had no pleuritic chest pain or GI symptoms. He has had a variety of urologic issues for which he follows up with Dr. Silver, and he states that Dr. Silver of Urology is the only doctor he has seen in the past couple of years. He lives with his and he reports she has been well lately. PAST MEDICAL HISTORY: 1. Organic heart disease; a. Coronary artery disease status post [place] x2 and stents. b. Congestive heart failure with EF 20% to 25%. c. History of V-tach. d. Mitral regurgitation. 2. COPD. 3. Hyponatremia. 4. Hyperlipidemia. 5. Hypertension. 6. Right pleural effusion. SOCIAL HISTORY: The patient is a nonsmoker. The patient is an every day smoker for he says seven years up until this week. He is a nondrinker and has never used illicit drugs. 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 He said the stress of that eventually got to him and caused him to have a heart attack and he retired and moved to [place]. [place] was too rainy and snowy and they moved and he now lives in [place] with his . 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 FAMILY HISTORY: Negative for tuberculosis though he does have a 1st degree family history of coronary artery disease. REVIEW OF SYSTEMS: The patient denies any ongoing headache. He denies visual change. He has no intraoral or pharyngeal complaints though he does note he is edentulous and uses false teeth, but no sore throat, odynophagia or dysphagia. He has noticed no swelling in his lymph nodes. He has been short of breath and has had an intermittent dry cough and that has been going on for a long time but worse the last couple of weeks. No recent chest pain. No nausea, vomiting, or diarrhea. He notes he has an abdominal hernia, but it is asymptomatic and he has never chosen to have it repaired. He sometimes has trouble with urinary incontinence and has to get up many times at night to urinate and is the reason he sees Dr. Silver of Urology. He notes that he has had some swelling in his legs, but it is better since he has been here in the hospital the past few days. He states that he has reasonable strength in his lower extremities but cannot walk too far primarily because he is limited by his respiratory status. Remainder of the review of systems is negative. PHYSICAL EXAMINATION: Reveals an afebrile gentleman, temperature 36.4, pulse 90, respiratory rate 18, blood pressure 106/65, saturating 92% on 3 L. Examination of the head reveals no evidence of acute trauma nor is there any temporal wasting. His conjunctivae are slightly pale but without any notable scleral abnormalities. Nose normal. Oral cavity is edentulous, but there is no evidence of pharyngitis or thrush. His neck is supple. There is no adenopathy. His lungs are notable for rales about a quarter of the way up both lung [place]. Cardiac tones: Regular rate and rhythm. There is a 2/6 murmur heard along the left lower sternal border. The abdomen is slightly protuberant, soft and nontender. I fail to appreciate the hernia he mentions. His scrotum and penis are normal. A Kimble catheter is present. There is no femoral or inguinal adenopathy. His lower extremities are without evidence of synovitis, cellulitis or edema. His torso was also free of any cellulitis. His legs are reasonably strong bilaterally as are his upper extremities. LABORATORIES: Include a white count that was 7800 when he came in. It is 12,000 now. The white blood count differential is slightly left shifted with 84% segs. His creatinine is 0.67. His LFTs are normal. CRP 1.2. BNP approximately 7000. Albumin 3.8. Procalcitonin essentially 0 times two separate measurements. Urinalysis without white cells. Serologies include negative urine, Legionella and pneumococcal screens. Sputum sample was obtained. It had many polys and some mixed jeffry. That was done on June 06. A respiratory viral PCR panel is negative. No blood cultures have been done nor do I think any are indicated. He has had two chest x-rays since admission. One shows a right pleural effusion with some bilateral patchy pulmonary opacities in the bases. A repeat done today shows patchy pulmonary edema and interval increase in the size of the small right pleural effusion with possible compressive atelectasis or pneumonia. IMPRESSION: This patient has been consistently afebrile and I am not certain I mentioned his vital signs today, but he has been afebrile since admission. He denies having any fevers or chills. He has no productive cough. His chest x-ray, which I reviewed, could easily be interpreted as just some pulmonary edema with atelectasis, and his procalcitonin is negative times two. I see no reason to implicate pneumonia as part of this patient's problems here in the hospital. He certainly could have an exacerbation of chronic obstructive pulmonary disease which could have some bacterial component to it, but I do not think that an infection has any significant role with respect to what is going on here. I do note the patient did receive a couple of doses of azithromycin since he has been here, but I do not believe that any other additional antibiotics are indicated at this time. RECOMMENDATIONS: 1. No antibiotics. 2. It may be reasonable to repeat a CBC and one more procalcitonin, but assuming those are negative and the patient continues to be afebrile and reasonably comfortable, I am pretty confident that he does not have a significant pulmonary or any infection and that his problems are pretty exclusively on the basis of his severely depressed ejection fraction combined with COPD. 3. ID will go ahead and sign off at this time. Thank you for the consult. Please do not hesitate to call if there are additional questions about this or any other patient.
[2016-06-08] VITALS (14 sets, daily range): BP systolic 77–112; BP diastolic 46–78; PULSE 68–121; RESP 18–22; O2SAT 91–97
[2016-06-08] MEDS: Albuterol-Ipratropium 3 mL Inhalation Solution NEB SCH ×4 (06:00→19:43)
[2016-06-08 06:20] LABS: BASOPHILS % (AUTO) 0.1 % (0-3); EOSINOPHILS % (AUTO) 0.3 % (0-5); MONOCYTES % (AUTO) 8.4 % (4-12); Mean Corpuscular Hemoglobin 31.4 pg (27.0-35.0); Mean Corpuscular Volume 92.7 fL (81-100); NEUTROPHILS % (AUTO) 82.3 % (40-74); Platelet Count 191 bil/L (150-400)
[2016-06-08] MEDS: Sodium Chloride LOK Flush 10 mL Syringe IVFLUSH SCH ×2 (08:58→16:14)
[2016-06-08] MEDS: MeTOProlol XL 50 mg ER24 Tablet PO SCH (09:03)
--- NOTE | 2016-06-08 09:08 | PCM.PNCARD ---
Subjective Date of service Jun 08, 2016 Chief Complaint Shortness of breath and fatigue History of Present Illness Ld Farias is a 76 year old male with past medical history significant for 2 myocardial infarctions with PTCA with drug-eluting stent of acute margin of RCA bare metal stenting of proximal RCA in September 2003, heart failure with reduced ejection fracture, [id number] smoking history, and medication noncompliance who presents with 2 weeks of increasing shortness of breath. Yesterday patient had Kimble catheter placed due to PVR of 1400 mls. Patient had no acute events overnight and slept on 4L nasal canula. No VT noted on telemetry overnight. Today patient has no complaints. He states he would like to get up and walk. He denies and shortness of breath, chest pain, abdominal pain, palpitations. UOP of 4L in last 24 hours. Cumulatively -9.4L during hospitalization. # Acute on systolic heart failure (heart failure with reduced ejection fraction) # Coronary artery disease status post PTCA with drug-eluting stenting of acute margin of RCA and bare-metal stenting of proximal RCA September 2003 # Non-sustained VT # Right carotid artery occlusion by MRA in 2004 # Hyperlipidemia # Hypertension # Presumed COPD and smoking 11-point ROS: 11-point Review of Systems negative Exam Vital Signs Vital Sign - Last Date Time Temp Pulse Resp B/P Pulse Ox O2 Delivery O2 Flow Rate FiO2 06/08/16 08:31 36.5 83 21 104/62 93 Nasal Cannula 4.00 Intake and Output 06/07/16 06/07/16 06/08/16 Cumulative From/Thru 15:00 23:00 07:00 06/03/16 15:55 - 06/08/16 06:53 Intake Total 650 ml 250 ml 4238 ml Output Total 1800 ml 600 ml 11094 ml Balance -1150 ml -350 ml -9412 ml Intake Oral 650 ml 250 ml 4238 ml Output Urine Total 1800 ml 600 ml 94118 ml # Voids 1 1 # Bowel Movements 0 1 Additional Information: General: No acute distress, well-developed, well-nourished, appropriately interactive HEENT: Nasal cannula in place. Normocephalic, atraumatic. External ears without defect. Pupils equal, round, and reactive to light and accommodation. Moist conjunctivae. Oropharynx with moist mucosa. Cardiovascular: Regular rate and rhythm with no murmurs, rubs, or gallops appreciated. JVP measured at 8 cm. Pulmonary: Mild bilateral crackles noted at the base of lungs improved from yesterday. No expiratory wheezes auscultated. Patient has a productive cough. Normal respiratory effort with no use of accessory muscles. Abdomen: Bowel tones present. Soft, nontender, nondistended. Extremities: No clubbing, cyanosis, edema, appreciated. Skin: Normal temperature, turgor, and texture; no rash, ulcers, or subcutaneous nodules appreciated. Neurology: No focal deficits. Normal gait. Psychiatric: Normal mood and affect. Alert and oriented to person, place, and time. Lab and Diagnostics Result Diagram: 06/08/1653406/08/16534 X-Rays, CTs and MRIs X-RAY CHEST ONE VIEW, PORTABLE IMPRESSION: 1. Persistent right basilar radiopacities in slightly increased confluence of the left basilar radiopacities when compared with the prior study dated 06/01/16 suggesting worsening infection. 2. Apparent slight decrease in the size of the right pleural effusion which may be positional in nature. Dictated by: Mami Pedersen M.D. on 06/03/2016 at 16:53 Approved by: Mami Pedersen M.D. on 06/03/2016 at 16:55 Echocardiogram Report Interpretation Summary Normal sinus rhythm. Mildly dilated LV; normal wall thickness; there is severe global hypokinesis with akinesis of the septum. The best motion is demonstrated by basal inferolateral segment. EF is 20-25%. Restrictive filling pattern consistent with advanced diastolic dysfunction. Severely dilated atria. Mitral valve leaflets are normal; there is moderate central MR. There is moderate central tricuspid regurgitation. Estimated PA systolic pressure is 58 mm Hg assuming RA pressure of 15 mm hg. Compared to prior study performed 2006 LV is more dilated. End diastolic dimension arun from 5.4 cm to 6.1 cm. EPSS arun from 1.2 cm to 2 cm consistent with worsening cardiomyopathy. EF is down from 30-35% to 20-25%. Diastolic dysfunction progressed from stage I to stage III. MR progressed from mild to moderate. Reading Physician:08:51 PM Assessment & Plan Assessment Ld Farias is a 76 year old male with past medical history significant for 2 myocardial infarctions with PTCA with drug-eluting stent of acute margin of RCA bare metal stenting of proximal RCA in September 2003, heart failure with reduced ejection fracture, [id number] smoking history, and medication noncompliance who presents with 2 weeks of increasing shortness of breath. # Acute on systolic heart failure (heart failure with reduced ejection fraction) : secondary to ischemic cardiomyopathy as noted with anterior and lateral extensive Q waves, suggesting prior completed infarctions. Etiology of the exacerbation is noncompliance with medications for the last 3-4 years. Echo on 06/05/16 revealed an EF of 20-25% decrease from 30-35% from prior study. He is NYHA class IIIb, ACC stage C. He appears hypervolemic on exam today despite having good diuresis of 10kg weight loss since admission. Plan and recommendation: - Stop carvedilol and start metoprolol succinate 50 mg BID to reduce risk of bronchospasm in this patient who probably has significant COPD from 70 pack year smoking history - Continue lisinopril 2.5 mg daily and consider increasing over the next few days - Continue furosemide 80 mg BID. Consider decreasing dose to 40 mg BID tomorrow. - Start spironolactone 12.5 mg daily. - Suggest outpatient cardiac rehabilitation. - ICD placement not applicable at this time as patient has not been medically optimized. Patient anyways not interested in ICD placement - Patient's blood pressure in the low 100s systolic would like to monitor BP when patient is walking to make sure there is no sign of orthostatic hypotension with addition of new medications. # Coronary artery disease status post PTCA with drug-eluting stenting of acute margin of RCA and bare-metal stenting of proximal RCA September 2003. Plan: - Treatment as above. - Aspirin 81 mg daily. - Start atorvastatin 80 mg at bedtime # Non-sustained VT: noted on telemetry. - Metoprolol as above # Right carotid artery occlusion by MRA in 2004. Management as CAD above. # Hyperlipidemia: as above # Hypertension: as above. # Presumed COPD and smoking: patient has 70 pack year smoking history. He states that he has decided to quit smoking. Will monitor as outpatient and consider PFTs. As discussed with primary team, Dr. Johnson, would suggest an O2 sat goal of 88-92%. Problems: Pain Evaluation: Adequate Pain Control GI Prophylaxis: Not indicated VTE Prophylaxis: Sub-Q Enoxaparin VTE Mechanical Devices: Intermittant Pneumatic CD Resuscitation Status: CPR: Attempt Resuscitation CARMELA FUENTES DO Jun 08, 2016 09:08
[2016-06-08] MEDS ORDERED: Potassium Chloride 20 mEq SR Tablet PO ONE (11:20)
[2016-06-08] MEDS ORDERED: DEXTROSE IV ONE ×2 (11:25)
[2016-06-08] MEDS ORDERED: POTASSIUM CHLORIDE IV ONE ×2 (11:25)
[2016-06-08] MEDS ORDERED: 0.9% Sodium Chloride 250 ML ONE (13:09)
--- NOTE | 2016-06-08 14:17 | PCM.PNMED ---
Subjective Date of Service Jun 08, 2016 Subjective Patient reports that he is feeling better today. He states that he is quite tired, but does feel improved from the previous day. Patient reports that he understands that he will need to get a primary care doctor and start following up with a powder press operator. Pt states that he understands that he needs to work on his health to keep him out of the hospital. Per telemetry, patient has not experienced any further episodes of non- sustained vtach. Pt has had intermittent PVCs. Exam Vital Signs Vital Sign - Last Date Time Temp Pulse Resp B/P Pulse Ox O2 Delivery O2 Flow Rate FiO2 06/08/16 05:16 36.6 68 18 110/76 96 Nasal Cannula 3.00 Intake and Output 06/07/16 06/07/16 06/08/16 Cumulative From/Thru 15:00 23:00 07:00 06/03/16 15:55 - 06/08/16 06:53 Intake Total 650 ml 250 ml 4238 ml Output Total 1800 ml 600 ml 15969 ml Balance -1150 ml -350 ml -9412 ml Intake Oral 650 ml 250 ml 4238 ml Output Urine Total 1800 ml 600 ml 18608 ml # Voids 1 1 # Bowel Movements 0 1 Exam General: No acute distress, well-developed, well-nourished, appropriately interactive HEENT: Nasal cannula in place Normocephalic, atraumatic. External ears without defect. Pupils equal, round, and reactive to light and accommodation. Moist conjunctivae. Oropharynx with moist mucosa. Cardiovascular: Regular rate and rhythm with no murmurs, rubs, or gallops appreciated Pulmonary: Mild bilateral crackles noted at the base of lungs-slightly less than previous examination. No expiratory wheezes auscultated. Patient has a productive cough.Normal respiratory effort with no use of accessory muscles. Abdomen: Hernia noted superior to the umbilicus, hernia is non-tender with palpation. Bowel tones present. Soft, nontender, nondistended. Extremities: No clubbing, cyanosis, edema, appreciated. Skin: Normal temperature, turgor, and texture; no rash, ulcers, or subcutaneous nodules appreciated. Psychiatric: Normal mood and affect. Alert and oriented to person, place, and time. IVs and Medications Medications Reviewed: Medications were reviewed in detail Lab and Diagnostics Result Diagram: 06/08/16 0535 06/08/16 0535 X-Rays, CTs and MRIs PROCEDURE: X-RAY CHEST ONE VIEW, PORTABLE INDICATIONS: SHORT OF BREATH TECHNIQUE: One view of the chest was acquired. COMPARISON: [facility], CR, XR CHEST 2VW, 06/01/2016, 14:57. FINDINGS: Surgical changes and devices: None. Lungs and pleura: Patchy pulmonary opacities are present in the bilateral lung bases. These are slightly increased in extent on the left when compared with the study dated 06/01/16. The small right pleural effusion has decreased in size when compared with the prior study. Mediastinum: Mediastinal contours appear normal. Heart size is normal. Bones and chest wall: No suspicious bony lesions. Overlying soft tissues appear unremarkable. IMPRESSION: 1. Persistent right basilar radiopacities in slightly increased confluence of the left basilar radiopacities when compared with the prior study dated 06/01/16 suggesting worsening infection. 2. Apparent slight decrease in the size of the right pleural effusion which may be positional in nature. Dictated by: Mami Pedersen M.D. on 06/03/2016 at 16:53 Approved by: Mami Pedersen M.D. on 06/03/2016 at 16:55 Cardiac Echo Impressions Interpretation Summary Normal sinus rhythm. Mildly dilated LV; normal wall thickness; there is severe global hypokinesis with akinesis of the septum. The best motion is demonstrated by basal inferolateral segment. EF is 20-25%. Restrictive filling pattern consistent with advanced diastolic dysfunction. Severely dilated atria. Mitral valve leaflets are normal; there is moderate central MR. There is moderate central tricuspid regurgitation. Estimated PA systolic pressure is 58 mm Hg assuming RA pressure of 15 mm hg. Compared to prior study performed 2006 LV is more dilated. End diastolic dimension arun from 5.4 cm to 6.1 cm. EPSS arun from 1.2 cm to 2 cm consistent with worsening cardiomyopathy. EF is down from 30-35% to 20-25%. Diastolic dysfunction progressed from stage I to stage III. MR progressed from mild to moderate. Assessment & Plan Acute systolic heart CHF exacerbation likely secondary to noncompliance, present on admission -Echo demonstrating decreased EF of 20-25%, with worsening MR and TR -Cardiology consulted, we appreciate their input. -Per Cardiology, pt to start metoprolol 50mg BID, Lisinopril 2.5mg daily, Decrease Lasix to 40mg BID PO on 06/09, Spironolactone 12.5mg daily.Also recommend Cardiac Rehab -Patient has diuresed a net of 8 L during this hospitalization -Given new medications, we will check orthostatic blood pressures today -Per Cardiology pt would likely benefit from Cardiac Rehab -Physical therapy to evaluate pt this AM Acute hypoxic respiratory failure with bilateral basilar opacities seen on x-ray , present on admission, ongoing -Respiratory viral panel and pneumococcal tests are negative -Slight leukocytosis present today -Continue with duonebs -CXR 06/07- demonstrating "Persistent pulmonary edema and interval increase in size of small right pleural effusion with persistent right basilar airspace opacity consistent with compressive atelectasis, patchy pulmonary edema and/or pneumonia." -Possible cause could be COPD( pt has 70 pack year smoking hx and continues to smoke) -ID has been consulted, and they do not suspect infectious cause, and believe issue is more likely a combination of COPD and CHF -Pt continues to require supplemental O2, and does not use O2 at home. Considering that pt may need to be sent home on supplemental oxygen-will have Respiratory Therapy assess the patient for this. Acute nonsustained asymptomatic VT Per cardiology patient to start metoprolol 50 mg twice a day -Per Telemetry, pt did not had any episodes of VT overnight Acute hypokalemia likely secondary to diuresis, not present on admission, ongoing -Pt given IV KCL 20, and also given PO 20meq potassium -We will recheck level at 5pm and in the AM -Will start patient on daily potassium, as he will be discharging on lasix. Acute hyponatremia, etiology unknown, chronicity unknown -Continues to be low, but stable -No previous records to compare if this is baseline for patient, and he does not get regular medical care -Continue to limit salt/water 1.5L -Continue to monitor BMP daily Mildly elevated glucose, present on admission -A1C is normal -Recommend outpatient follow up Chronic issues CAD -Per Cardiology, continue 81 mg aspirin and start atorvastatin 80 mg daily at bedtime BPH/LUTS -Continue flomax, f/u Dr. Silver on discharge Diet DM Cardiac DVT prophylaxis lovenox Code full VTE Mechanical Devices: Intermittant Pneumatic CD Resuscitation Status: CPR: Attempt Resuscitation Attending Statement The patient was seen and examined together with Dr. Johnson on 06/08/2016 and I agree with the history, exam and plan as outlined in the note above. Dalila Johnson DO Jun 08, 2016 06:59 Don Pardo MD Jun 09, 2016 10:12
[2016-06-08] MEDS ORDERED: MeTOProlol XL 25 mg ER24 Tablet PO ONE (16:05)
[2016-06-08] MEDS ORDERED: MeTOProlol XL 50 mg ER24 Tablet PO SCH (20:30)
[2016-06-08] MEDS ORDERED: 0.9% Sodium Chloride 250 ML IV ONE (21:05)
[2016-06-09] VITALS (13 sets, daily range): BP systolic 98–116; BP diastolic 50–81; PULSE 92–130; RESP 18–25; O2SAT 91–97
[2016-06-09] MEDS: Sodium Chloride LOK Flush 10 mL Syringe IVFLUSH SCH ×4 (00:30→21:07)
[2016-06-09 01:13] LABS: APPEARANCE,URINE CLEAR (CLEAR,HAZY); COLOR,URINE YELLOW (YELLOW); OCCULT BLOOD,URINE LARGE (NEGATIVE); PH,URINE 6.5 (5.0-8.0)
[2016-06-09 06:46] LABS: BASOPHILS % (AUTO) 0.3 % (0-3); MONOCYTES % (AUTO) 8.1 % (4-12); Mean Corpuscular Hemoglobin 31.4 pg (27.0-35.0); Mean Corpuscular Volume 94.7 fL (81-100); NEUTROPHILS % (AUTO) 80.6 % (40-74); Platelet Count 192 bil/L (150-400)
[2016-06-09] MEDS: Albuterol-Ipratropium 3 mL Inhalation Solution NEB SCH ×4 (07:44→20:27)
[2016-06-09] MEDS: Potassium Chloride 20 mEq SR Tablet PO SCH (08:00)
--- NOTE | 2016-06-09 08:37 | PCM.PNCARD ---
Subjective Date of service Jun 09, 2016 Chief Complaint Shortness of breath and fatigue History of Present Illness Ld Farias is a 76 year old male with past medical history significant for 2 myocardial infarctions with PTCA with drug-eluting stent of acute margin of RCA bare metal stenting of proximal RCA in September 2003, heart failure with reduced ejection fracture, [id number] smoking history, and medication noncompliance who presents with 2 weeks of increasing shortness of breath. Yesterday patient converted to AF with HR in the 120-140s. Additional dose of metoprolol given and BID dosing increased. Patient's evening dose held for hypotension. Patient remained tachycardic but asymptomatic throughout the night. Today patient has no complaints. Continues to be in AF with HR in the 130s. Denies any palpatations, chest pain, shortness of breath, or dizziness. UOP of 1200 mL in last 24 hours. Cumulatively -9.2L during hospitalization. # Acute on systolic heart failure (heart failure with reduced ejection fraction) # Coronary artery disease status post PTCA with drug-eluting stenting of acute margin of RCA and bare-metal stenting of proximal RCA September 2003 # Atrial fibrillation with RVR # Non-sustained VT # Right carotid artery occlusion by MRA in 2004 # Hyperlipidemia # Hypertension # Presumed COPD and smoking 11-point ROS: 11-point Review of Systems negative Exam Vital Signs Vital Sign - Last Date Time Temp Pulse Resp B/P Pulse Ox O2 Delivery O2 Flow Rate FiO2 06/09/16 05:09 36.6 20 96 Nasal Cannula 4.00 06/09/16 04:58 130 98/50 Intake and Output 06/08/16 06/08/16 06/09/16 Cumulative From/Thru 15:00 23:00 07:00 06/03/16 15:55 - 06/09/16 06:41 Intake Total 844 ml 350 ml 5432 ml Output Total 600 ml 400 ml 65278 ml Balance 244 ml -50 ml -9218 ml Intake Oral 500 ml 100 ml 4838 ml IV Total 344 ml 250 ml 594 ml Output Urine Total 600 ml 400 ml 30828 ml # Voids 1 # Bowel Movements 1 Additional Information: General: No acute distress, well-developed, well-nourished, appropriately interactive HEENT: Nasal cannula in place. Normocephalic, atraumatic. External ears without defect. Pupils equal, round, and reactive to light and accommodation. Moist conjunctivae. Oropharynx with moist mucosa. Cardiovascular: Irregularly, irregular with no murmurs, rubs, or gallops appreciated. Pulmonary: Mild bilateral crackles noted at the base of lungs improved from yesterday. No expiratory wheezes auscultated. Patient has a productive cough. Normal respiratory effort with no use of accessory muscles. Abdomen: Bowel tones present. Soft, nontender, nondistended. Extremities: No clubbing, cyanosis, edema, appreciated. Skin: Normal temperature, turgor, and texture; no rash, ulcers, or subcutaneous nodules appreciated. Neurology: No focal deficits. Normal gait. Psychiatric: Normal mood and affect. Alert and oriented to person, place, and time. Lab and Diagnostics Result Diagram: 06/09/1662306/09/16623 X-Rays, CTs and MRIs X-RAY CHEST ONE VIEW, PORTABLE IMPRESSION: 1. Persistent right basilar radiopacities in slightly increased confluence of the left basilar radiopacities when compared with the prior study dated 06/01/16 suggesting worsening infection. 2. Apparent slight decrease in the size of the right pleural effusion which may be positional in nature. Dictated by: Mami Pedersen M.D. on 06/03/2016 at 16:53 Approved by: Mami Pedersen M.D. on 06/03/2016 at 16:55 Echocardiogram Report Interpretation Summary Normal sinus rhythm. Mildly dilated LV; normal wall thickness; there is severe global hypokinesis with akinesis of the septum. The best motion is demonstrated by basal inferolateral segment. EF is 20-25%. Restrictive filling pattern consistent with advanced diastolic dysfunction. Severely dilated atria. Mitral valve leaflets are normal; there is moderate central MR. There is moderate central tricuspid regurgitation. Estimated PA systolic pressure is 58 mm Hg assuming RA pressure of 15 mm hg. Compared to prior study performed 2006 LV is more dilated. End diastolic dimension arun from 5.4 cm to 6.1 cm. EPSS arun from 1.2 cm to 2 cm consistent with worsening cardiomyopathy. EF is down from 30-35% to 20-25%. Diastolic dysfunction progressed from stage I to stage III. MR progressed from mild to moderate. Reading Physician:08:51 PM Assessment & Plan Assessment Ld Farias is a 76 year old male with past medical history significant for 2 myocardial infarctions with PTCA with drug-eluting stent of acute margin of RCA bare metal stenting of proximal RCA in September 2003, heart failure with reduced ejection fracture, [id number] smoking history, and medication noncompliance who presents with 2 weeks of increasing shortness of breath. # Acute on systolic heart failure (heart failure with reduced ejection fraction) : secondary to ischemic cardiomyopathy as noted with anterior and lateral extensive Q waves, suggesting prior completed infarctions. Etiology of the exacerbation is noncompliance with medications for the last 3-4 years. Echo on 06/05/16 revealed an EF of 20-25% decrease from 30-35% from prior study. He is NYHA class IIIb, ACC stage C. He appears hypervolemic on exam today despite having good diuresis of 10kg weight loss since admission. Plan and recommendation: - Metoprolol succinate increased to 100 mg BID. - Continue lisinopril 2.5 mg daily and consider increasing over the next few days. - Continue furosemide 40 mg BID. - Start spironolactone 12.5 mg daily. - Suggest outpatient cardiac rehabilitation. - ICD placement not applicable at this time as patient has not been medically optimized. Patient anyways not interested in ICD placement - Patient's blood pressure in the low 100s systolic would like to monitor BP when patient is walking to make sure there is no sign of orthostatic hypotension with adjustment of medications. # New onset atrial fibrillation with RVR: Patient converted to AF on 06/08 with HR in 120-140s. Rate control poor despite uptitration of metoprolol. CHADSVASC of 5, suggesting benefit from therapeutic anticoagulation. Patient educated about his condition. - Increase Metoprolol succinated to 100 mg BID. - Eliquis 5 mg BID started 06/09/16. - Cardioversion tomorrow morning. Informed consent obtained. # Coronary artery disease status post PTCA with drug-eluting stenting of acute margin of RCA and bare-metal stenting of proximal RCA September 2003. Plan: - Treatment as above. - Aspirin 81 mg daily. - Start atorvastatin 80 mg at bedtime # Non-sustained VT: noted on telemetry. - Metoprolol as above # Right carotid artery occlusion by MRA in 2004. Management as CAD above. # Hyperlipidemia: as above # Hypertension: as above. # Presumed COPD and smoking: patient has 70 pack year smoking history. He states that he has decided to quit smoking. Will monitor as outpatient and consider PFTs. As discussed with primary team, Dr. Johnson, would suggest an O2 sat goal of 88-92%. Problems: Pain Evaluation: Adequate Pain Control GI Prophylaxis: Not indicated VTE Prophylaxis: Sub-Q Enoxaparin VTE Mechanical Devices: Intermittant Pneumatic CD Resuscitation Status: CPR: Attempt Resuscitation Attending Statement I saw, examined, and evaluated the patient with Dr. Carmela Fuentes on 06/09/2016 and agree with the note above along with my edits. Given new onset atrial fibrillation that remains poorly rate controlled, we will do DC cardioversion tomorrow (within 48 hours of onset and thus no need for ILIR). CARMELA FUENTES DO Jun 09, 2016 08:37 Michoacano Camara MD Jun 09, 2016 15:18
[2016-06-09] MEDS: MeTOProlol XL 50 mg ER24 Tablet PO SCH ×2 (09:22→20:59)
--- NOTE | 2016-06-09 15:51 | PCM.PNMED ---
Subjective Date of Service Jun 09, 2016 Subjective Patient reports that he was doing well, but continues to be very fatigued. Patient states that he is very anxious to get up out of bed and move around. Patient denies any chest pain or pressure, and denies feeling any palpitations over the evening. Patient denies any headaches, blurred vision. Per nursing overnight patient had issues with urinary retention, even out catheters were used. Exam Vital Signs Vital Sign - Last Date Time Temp Pulse Resp B/P Pulse Ox O2 Delivery O2 Flow Rate FiO2 06/09/16 13:33 36.7 122 25 116/81 93 Nasal Cannula 2.00 Intake and Output 06/08/16 06/08/16 06/09/16 Cumulative From/Thru 15:00 23:00 07:00 06/03/16 15:55 - 06/09/16 06:41 Intake Total 844 ml 350 ml 5432 ml Output Total 600 ml 400 ml 23789 ml Balance 244 ml -50 ml -9218 ml Intake Oral 500 ml 100 ml 4838 ml IV Total 344 ml 250 ml 594 ml Output Urine Total 600 ml 400 ml 16075 ml # Voids 1 # Bowel Movements 1 Exam General: No acute distress, well-developed, well-nourished, appropriately interactive HEENT: Nasal cannula in place Normocephalic, atraumatic. External ears without defect. Pupils equal, round, and reactive to light and accommodation. Moist conjunctivae. Oropharynx with moist mucosa. Cardiovascular: Irregularly irregular rhythm, tachycardia with no murmurs, rubs , or gallops appreciated Pulmonary: Minimal bilateral crackles noted at the bases- improved from yesterday. No expiratory wheezes auscultated. Patient has a productive cough.Normal respiratory effort with no use of accessory muscles. Abdomen: Hernia noted superior to the umbilicus, hernia is non-tender with palpation. Bowel tones present. Soft, nontender, nondistended. Extremities: No clubbing, cyanosis, edema, appreciated. Skin: Normal temperature, turgor, and texture; no rash, ulcers, or subcutaneous nodules appreciated. Psychiatric: Normal mood and affect. Alert and oriented to person, place, and time. IVs and Medications IV Fluids Overnight patient received 250 ml bolus normal saline Medications Reviewed: Medications were reviewed in detail Lab and Diagnostics Result Diagram: 06/09/1662306/09/16623 X-Rays, CTs and MRIs PROCEDURE: X-RAY CHEST ONE VIEW, PORTABLE INDICATIONS: SHORT OF BREATH TECHNIQUE: One view of the chest was acquired. COMPARISON: [facility], CR, XR CHEST 2VW, 06/01/2016, 14:57. FINDINGS: Surgical changes and devices: None. Lungs and pleura: Patchy pulmonary opacities are present in the bilateral lung bases. These are slightly increased in extent on the left when compared with the study dated 06/01/16. The small right pleural effusion has decreased in size when compared with the prior study. Mediastinum: Mediastinal contours appear normal. Heart size is normal. Bones and chest wall: No suspicious bony lesions. Overlying soft tissues appear unremarkable. IMPRESSION: 1. Persistent right basilar radiopacities in slightly increased confluence of the left basilar radiopacities when compared with the prior study dated 06/01/16 suggesting worsening infection. 2. Apparent slight decrease in the size of the right pleural effusion which may be positional in nature. Dictated by: Mami Pedersen M.D. on 06/03/2016 at 16:53 Approved by: Mami Pedersen M.D. on 06/03/2016 at 16:55 Cardiac Echo Impressions Interpretation Summary Normal sinus rhythm. Mildly dilated LV; normal wall thickness; there is severe global hypokinesis with akinesis of the septum. The best motion is demonstrated by basal inferolateral segment. EF is 20-25%. Restrictive filling pattern consistent with advanced diastolic dysfunction. Severely dilated atria. Mitral valve leaflets are normal; there is moderate central MR. There is moderate central tricuspid regurgitation. Estimated PA systolic pressure is 58 mm Hg assuming RA pressure of 15 mm hg. Compared to prior study performed 2006 LV is more dilated. End diastolic dimension arun from 5.4 cm to 6.1 cm. EPSS arun from 1.2 cm to 2 cm consistent with worsening cardiomyopathy. EF is down from 30-35% to 20-25%. Diastolic dysfunction progressed from stage I to stage III. MR progressed from mild to moderate. Assessment & Plan Acute systolic heart CHF exacerbation likely secondary to noncompliance, present on admission, resolving -Echo demonstrating decreased EF of 20-25%, with worsening MR and TR -Cardiology consulted, we appreciate their input. -Per Cardiology, increasing metoprolol to 100 mg twice a day, Lisinopril 2.5mg daily, Lasix to 40mg BID PO , Spironolactone 12.5mg daily.Also recommend Cardiac Rehab after DC -Patient has diuresed a net of 9 L during this hospitalization -Patient has become hypotensive with medication changes -Physical therapy to work with patient today New-onset atrial fibrillation, not present on admission, ongoing -Per cardiology they have discontinued his heparin, and started Apixaban -Cardiology plans to cardiovert patient in the morning tomorrow Acute hypotension, not present on admission, ongoing -Overnight patient appeared to have some hypotension, and was given a bolus of NS -Patient denies any symptoms with this decrease in blood pressure -Continuing to monitor blood pressure Urinary retention -Patient has been unable to urinate, requiring in and out catheterization throughout the night -Kimble catheter placed today Acute hypoxic respiratory failure with bilateral basilar opacities seen on x-ray , present on admission, ongoing -Respiratory viral panel and pneumococcal tests are negative -Slight leukocytosis present today -Continue with duonebs -CXR 06/07- demonstrating "Persistent pulmonary edema and interval increase in size of small right pleural effusion with persistent right basilar airspace opacity consistent with compressive atelectasis, patchy pulmonary edema and/or pneumonia." -Possible cause could be COPD( pt has 70 pack year smoking hx and continues to smoke) -ID has been consulted, and they do not suspect infectious cause, and believe issue is more likely a combination of COPD and CHF -Pt continues to require supplemental O2, and does not use O2 at home. Considering that pt may need to be sent home on supplemental oxygen-will have Respiratory Therapy assess the patient for this. Currently using 2 L on nasal cannula. Acute nonsustained asymptomatic VT, not present on admission, resolved Per cardiology patient to start metoprolol 50 mg twice a day -Per Telemetry, pt did not had any episodes of VT overnight Acute hypokalemia likely secondary to diuresis, not present on admission, resolved -Pt was given given IV KCL 20, and also given PO 20meq potassium on 06/08 -Potassium has been normal -Will start patient on daily potassium, as he will be discharging on lasix. -Continue to monitor and replenish as needed Acute hyponatremia, etiology unknown, chronicity unknown, resolved -Continues to be low, but stable -No previous records to compare if this is baseline for patient, and he does not get regular medical care -Continue to limit salt/water 1.5L -Continue to monitor BMP daily Mildly elevated glucose, present on admission -A1C is normal -Recommend outpatient follow up Chronic issues CAD -Per Cardiology, continue 81 mg aspirin and start atorvastatin 80 mg daily at bedtime BPH/LUTS -Continue flomax, f/u Dr. Silver on discharge Diet DM Cardiac DVT prophylaxis lovenox Code full GI Prophylaxis: Not indicated VTE Prophylaxis: Sub-Q Enoxaparin VTE Mechanical Devices: Intermittant Pneumatic CD Resuscitation Status: CPR: Attempt Resuscitation Attending Statement The patient was seen and examined together with Dr. Johnson on 06/09/2016 and I agree with the history, exam and plan as outlined in the note above. Dalila Johnson DO Jun 09, 2016 15:51 Don Pardo MD Jun 10, 2016 11:48
[2016-06-10] VITALS (19 sets, daily range): BP systolic 88–118; BP diastolic 49–77; PULSE 41–121; RESP 12–22; O2SAT 92–98
[2016-06-10 06:20] LABS: BASOPHILS % (AUTO) 0.3 % (0-3); EOSINOPHILS % (AUTO) 0.2 % (0-5); Mean Corpuscular Hemoglobin 31.4 pg (27.0-35.0); Mean Corpuscular Volume 94.9 fL (81-100); Platelet Count 205 bil/L (150-400)
[2016-06-10] MEDS: Potassium Chloride 20 mEq SR Tablet PO SCH (08:00)
[2016-06-10] MEDS: Sodium Chloride LOK Flush 10 mL Syringe IVFLUSH SCH ×2 (08:02→17:13)
[2016-06-10] MEDS: MeTOProlol XL 50 mg ER24 Tablet PO SCH ×2 (08:03→20:30)
[2016-06-10] MEDS: Albuterol-Ipratropium 3 mL Inhalation Solution NEB SCH ×4 (08:28→20:23)
--- NOTE | 2016-06-10 09:06 | PCM.PNCARD ---
Subjective Date of service Jun 10, 2016 Chief Complaint Shortness of breath and fatigue History of Present Illness Ld Farias is a 76 year old male with past medical history significant for 2 myocardial infarctions with PTCA with drug-eluting stent of acute margin of RCA bare metal stenting of proximal RCA in September 2003, heart failure with reduced ejection fracture, [id number] smoking history, and medication noncompliance who presents with 2 weeks of increasing shortness of breath. Patient converted to AF on 06/08 at 1249. Patient was started on apixaban 5 mg BID yesterday. Metoprolol succinate 100 mg BID given with no subsequent conversion to NSR. Discussion regarding cardioversion had and patient agreeable. Today patient has no complaints. Continues to be in AF with HR in the 110-120s. Denies any palpitations, chest pain, shortness of breath, or dizziness. Problem List: # Acute on systolic heart failure (heart failure with reduced ejection fraction) # Coronary artery disease status post PTCA with drug-eluting stenting of acute margin of RCA and bare-metal stenting of proximal RCA September 2003 # Atrial fibrillation with RVR # Non-sustained VT # Right carotid artery occlusion by MRA in 2004 # Hyperlipidemia # Hypertension # Presumed COPD and smoking 11-point ROS: 11-point Review of Systems negative Exam Vital Signs Vital Sign - Last Date Time Temp Pulse Resp B/P Pulse Ox O2 Delivery O2 Flow Rate FiO2 06/10/16 08:41 36.6 107 20 111/73 97 Nasal Cannula 3.00 Intake and Output 06/09/16 06/09/16 06/10/16 Cumulative From/Thru 15:00 23:00 07:00 06/03/16 15:55 - 06/09/16 21:09 Intake Total 867 ml 6299 ml Output Total 450 ml 56937 ml Balance 417 ml -8801 ml Intake Oral 867 ml 5705 ml IV Total 594 ml Output Urine Total 450 ml 56048 ml # Voids 1 # Bowel Movements 1 Additional Information: General: No acute distress, well-developed, well-nourished, appropriately interactive HEENT: Nasal cannula in place. Normocephalic, atraumatic. External ears without defect. Pupils equal, round, and reactive to light and accommodation. Moist conjunctivae. Oropharynx with moist mucosa. Cardiovascular: Irregularly, irregular with no murmurs, rubs, or gallops appreciated. Pulmonary: Mild bilateral crackles noted at the base of lungs improved from yesterday. No expiratory wheezes auscultated. Patient has a productive cough. Normal respiratory effort with no use of accessory muscles. Abdomen: Bowel tones present. Soft, nontender, nondistended. Extremities: No clubbing, cyanosis, edema, appreciated. Skin: Normal temperature, turgor, and texture; no rash, ulcers, or subcutaneous nodules appreciated. Neurology: No focal deficits. Normal gait. Psychiatric: Normal mood and affect. Alert and oriented to person, place, and time. Lab and Diagnostics Result Diagram: 06/10/1660106/10/16601 X-Rays, CTs and MRIs X-RAY CHEST ONE VIEW, PORTABLE IMPRESSION: 1. Persistent right basilar radiopacities in slightly increased confluence of the left basilar radiopacities when compared with the prior study dated 06/01/16 suggesting worsening infection. 2. Apparent slight decrease in the size of the right pleural effusion which may be positional in nature. Dictated by: Mami Pedersen M.D. on 06/03/2016 at 16:53 Approved by: Mami Pedersen M.D. on 06/03/2016 at 16:55 Echocardiogram Report Interpretation Summary Normal sinus rhythm. Mildly dilated LV; normal wall thickness; there is severe global hypokinesis with akinesis of the septum. The best motion is demonstrated by basal inferolateral segment. EF is 20-25%. Restrictive filling pattern consistent with advanced diastolic dysfunction. Severely dilated atria. Mitral valve leaflets are normal; there is moderate central MR. There is moderate central tricuspid regurgitation. Estimated PA systolic pressure is 58 mm Hg assuming RA pressure of 15 mm hg. Compared to prior study performed 2006 LV is more dilated. End diastolic dimension arun from 5.4 cm to 6.1 cm. EPSS arun from 1.2 cm to 2 cm consistent with worsening cardiomyopathy. EF is down from 30-35% to 20-25%. Diastolic dysfunction progressed from stage I to stage III. MR progressed from mild to moderate. Reading Physician:08:51 PM Assessment & Plan Assessment Ld Farias is a 76 year old male with past medical history significant for 2 myocardial infarctions with PTCA with drug-eluting stent of acute margin of RCA bare metal stenting of proximal RCA in September 2003, heart failure with reduced ejection fracture, [id number] smoking history, and medication noncompliance who presents with 2 weeks of increasing shortness of breath. # Acute on systolic heart failure (heart failure with reduced ejection fraction) : secondary to ischemic cardiomyopathy as noted with anterior and lateral extensive Q waves, suggesting prior completed infarctions. Etiology of the exacerbation is noncompliance with medications for the last 3-4 years. Echo on 06/05/16 revealed an EF of 20-25% decrease from 30-35% from prior study. He is NYHA class IIIb, ACC stage C. He appears hypervolemic on exam today despite having good diuresis of 10kg weight loss since admission. Plan and recommendation: - Metoprolol succinate 100 mg BID. - Lisinopril 2.5 mg daily. - Furosemide 40 mg BID. - Spironolactone 12.5 mg daily. - Suggest outpatient cardiac rehabilitation. - ICD placement not applicable at this time as patient has not been medically optimized. Patient anyways not interested in ICD placement # New onset atrial fibrillation with RVR: Patient converted to AF on 06/08 at 1249 with HR in 120-140s. CHADSVASC of 5. - Metoprolol succinated to 100 mg BID. - Apixaban 5 mg BID started 06/09/16. - Plan to cardiovert later this morning. # Coronary artery disease status post PTCA with drug-eluting stenting of acute margin of RCA and bare-metal stenting of proximal RCA September 2003. Plan: - Treatment as above. - Aspirin 81 mg daily. - Atorvastatin 80 mg at bedtime # Non-sustained VT: Noted on telemetry. No episodes over last 48 hours. - Metoprolol as above # Right carotid artery occlusion by MRA in 2004. Management as CAD above. # Hyperlipidemia: as above # Hypertension: as above. # Presumed COPD and smoking: patient has 70 pack year smoking history. He states that he has decided to quit smoking. Will monitor as outpatient and consider PFTs. As discussed with primary team, Dr. Johnson, would suggest an O2 sat goal of 88-92%. Problems: Pain Evaluation: Adequate Pain Control GI Prophylaxis: Not indicated VTE Prophylaxis: Sub-Q Enoxaparin VTE Mechanical Devices: Intermittant Pneumatic CD Resuscitation Status: CPR: Attempt Resuscitation Attending Statement Please see the procedure note for Cardioversion. I agree with the note above. Patient seen with Dr. Fuentes 07/08/2016 CARMELA FUENTES DO Jun 10, 2016 09:06 Michoacano Camara MD Jul 01, 2016 16:12
[2016-06-10] MEDS ORDERED: 0.9% Sodium Chloride 500 ML ONE (09:53)
[2016-06-10] MEDS ORDERED: Methohexital 10 mg/mL 50 mL Inj ONE (09:55)
[2016-06-10] MEDS ORDERED: Atropine 1 mg/10 mL (Code) Syringe ONE (09:56)
[2016-06-10] MEDS ORDERED: CeFAZolin Inj 2 GM in IV Premix 1 EACH IV SCH (11:40)
--- NOTE | 2016-06-10 11:40 | PCM.PROC ---
Procedure Note Date of Service: Jun 10, 2016 Pre Procedure Diagnosis: Atrial fibrillation with rapid ventricular response Post Procedure Diagnosis: Atrial fibrillation with rapid ventricular response. Procedure: DC cardioversion within 48 hours of new onset atrial fibrillation Indication for Procedure: rapid ventricular response Findings: Successful conversion from atrial fibrillation to sinus rhythm Procedural Analgesia: Brevital 30mg IV X1 Procedure Details: After patient was confirmed to have been taking apixaban 5mg bid and his rhythm was confirmed to have converted from sinus to atrial fibrillation less than 48 hours prior to procedure, he received IV brevital for sedation and then got 200J of synchronized DC cardioversion that successfully converted the rhythm from atrial fibrillation to sinus rhythm. No immediate complications. Post Procedure Plan: 1) Continue metoprolol XL 100mg bid 2) Continue apixaban 5mg bid 3) F/U with cardiology in 4 weeks Michoacano Camara MD Jun 10, 2016 11:40
[2016-06-10] MEDS ORDERED: 0.9% Sodium Chloride 250 ML ONE (13:02)
--- NOTE | 2016-06-10 21:41 | PCM.PNMED ---
Subjective Date of Service Jun 10, 2016 Subjective Patient reports that he is doing well. He states that he is eager to go home, but understands that he is not better yet. Exam Vital Signs Vital Sign - Last Date Time Temp Pulse Resp B/P Pulse Ox O2 Delivery O2 Flow Rate FiO2 06/10/16 20:23 80 18 95 Nasal Cannula 3.00 06/10/16 20:10 36.7 101/65 Intake and Output 06/09/16 06/09/16 06/10/16 Cumulative From/Thru 15:00 23:00 07:00 06/03/16 15:55 - 06/09/16 21:09 Intake Total 867 ml 6299 ml Output Total 450 ml 03960 ml Balance 417 ml -8801 ml Intake Oral 867 ml 5705 ml IV Total 594 ml Output Urine Total 450 ml 38158 ml # Voids 1 # Bowel Movements 1 Exam General: No acute distress, well-developed, well-nourished, appropriately interactive HEENT: Nasal cannula in place Normocephalic, atraumatic. External ears without defect. Pupils equal, round, and reactive to light and accommodation. Moist conjunctivae. Oropharynx with moist mucosa. Cardiovascular: Irregularly irregular rhythm, tachycardia with no murmurs, rubs , or gallops appreciated Pulmonary: Minimal bilateral crackles noted at the bases- improved from yesterday. No expiratory wheezes auscultated. Patient has a productive cough.Normal respiratory effort with no use of accessory muscles. Abdomen: Hernia noted superior to the umbilicus, hernia is non-tender with palpation. Bowel tones present. Soft, nontender, nondistended. Extremities: No clubbing, cyanosis, edema, appreciated. Skin: Normal temperature, turgor, and texture; no rash, ulcers, or subcutaneous nodules appreciated. Psychiatric: Normal mood and affect. Alert and oriented to person, place, and time. IVs and Medications Medications Reviewed: Medications were reviewed in detail Lab and Diagnostics Result Diagram: 06/10/1660106/10/16601 X-Rays, CTs and MRIs PROCEDURE: X-RAY CHEST ONE VIEW, PORTABLE INDICATIONS: SHORT OF BREATH TECHNIQUE: One view of the chest was acquired. COMPARISON: [facility], CR, XR CHEST 2VW, 06/01/2016, 14:57. FINDINGS: Surgical changes and devices: None. Lungs and pleura: Patchy pulmonary opacities are present in the bilateral lung bases. These are slightly increased in extent on the left when compared with the study dated 06/01/16. The small right pleural effusion has decreased in size when compared with the prior study. Mediastinum: Mediastinal contours appear normal. Heart size is normal. Bones and chest wall: No suspicious bony lesions. Overlying soft tissues appear unremarkable. IMPRESSION: 1. Persistent right basilar radiopacities in slightly increased confluence of the left basilar radiopacities when compared with the prior study dated 06/01/16 suggesting worsening infection. 2. Apparent slight decrease in the size of the right pleural effusion which may be positional in nature. Dictated by: Mami Pedersen M.D. on 06/03/2016 at 16:53 Approved by: Mami Pedersen M.D. on 06/03/2016 at 16:55 Cardiac Echo Impressions Interpretation Summary Normal sinus rhythm. Mildly dilated LV; normal wall thickness; there is severe global hypokinesis with akinesis of the septum. The best motion is demonstrated by basal inferolateral segment. EF is 20-25%. Restrictive filling pattern consistent with advanced diastolic dysfunction. Severely dilated atria. Mitral valve leaflets are normal; there is moderate central MR. There is moderate central tricuspid regurgitation. Estimated PA systolic pressure is 58 mm Hg assuming RA pressure of 15 mm hg. Compared to prior study performed 2006 LV is more dilated. End diastolic dimension arun from 5.4 cm to 6.1 cm. EPSS arun from 1.2 cm to 2 cm consistent with worsening cardiomyopathy. EF is down from 30-35% to 20-25%. Diastolic dysfunction progressed from stage I to stage III. MR progressed from mild to moderate. Assessment & Plan Acute urinary tract infection, not present on admission, ongoing -Urine culture growing strep enterococci -Pt will be started on Ceftriaxone 2g daily for 3 days. Acute systolic heart CHF exacerbation likely secondary to noncompliance, present on admission, resolving -Echo demonstrating decreased EF of 20-25%, with worsening MR and TR -Cardiology consulted, we appreciate their input. -Per Cardiology, increasing metoprolol to 100 mg twice a day, Lisinopril 2.5mg daily, Lasix to 40mg BID PO , Spironolactone 12.5mg daily.Also recommend Cardiac Rehab after DC -Patient has diuresed a net of 9 L during this hospitalization -Patient has become hypotensive with medication changes -Physical therapy to work with patient New-onset atrial fibrillation, not present on admission, ongoing -Per cardiology, pt to discharge on Metoprolol 100mg BID, Apixaban 5 mg BID and follow up with Cardiology in 4 wks -Cardiology to cardiovert patient today, and will likely discharge tomorrow. Acute hypotension, not present on admission, ongoing -Patient continues to have some hypotensive episodes -Patient denies any symptoms with this decrease in blood pressure -Continuing to monitor blood pressure Urinary retention -Patient has been unable to urinate, requiring in and out catheterization throughout the night -Kimble catheter placed 06/09 -Urine culture growing strep enterococci Acute hypoxic respiratory failure with bilateral basilar opacities seen on x-ray , present on admission, ongoing -Respiratory viral panel and pneumococcal tests are negative -Slight leukocytosis present today -Continue with duonebs -CXR 06/07- demonstrating "Persistent pulmonary edema and interval increase in size of small right pleural effusion with persistent right basilar airspace opacity consistent with compressive atelectasis, patchy pulmonary edema and/or pneumonia." -Possible cause could be COPD( pt has 70 pack year smoking hx and continues to smoke) -ID has been consulted, and they do not suspect infectious cause, and believe issue is more likely a combination of COPD and CHF -Pt continues to require supplemental O2, and does not use O2 at home. Considering that pt may need to be sent home on supplemental oxygen-will have Respiratory Therapy assess the patient for this. Currently using 3 L on nasal cannula. Acute nonsustained asymptomatic VT, not present on admission, resolved -Per cardiology patient to be discharged on metoprolol 100 mg twice a day Acute hypokalemia likely secondary to diuresis, not present on admission, resolved -Pt was given given IV KCL 20, and also given PO 20meq potassium on 06/08 -Potassium has been normal -Will start patient on daily potassium, as he will be discharging on lasix. -Continue to monitor and replenish as needed Acute hyponatremia, etiology unknown, chronicity unknown, resolved -Continues to be low, but stable -No previous records to compare if this is baseline for patient, and he does not get regular medical care -Continue to limit salt/water 1.5L -Continue to monitor BMP daily Mildly elevated glucose, present on admission -A1C is normal -Recommend outpatient follow up Chronic issues CAD -Per Cardiology, continue 81 mg aspirin and start atorvastatin 80 mg daily at bedtime BPH/LUTS -Continue flomax, f/u Dr. Silver on discharge Diet DM Cardiac DVT prophylaxis lovenox Code full Called and made patient appointment to establish care with a primary care physician- Dr Gomez( 06/28/16 at 10:30am). GI Prophylaxis: Not indicated VTE Prophylaxis: Sub-Q Enoxaparin VTE Mechanical Devices: Intermittant Pneumatic CD Resuscitation Status: CPR: Attempt Resuscitation Attending Statement The patient was seen and examined together with Dr. Johnson on 06/10/2016 and I agree with the history, exam and plan as outlined in the note above. Dalila Johnson DO Jun 10, 2016 21:41 Don Pardo MD Jun 11, 2016 14:05
[2016-06-11] VITALS (9 sets, daily range): BP systolic 116–132; BP diastolic 64–77; PULSE 38–84; RESP 19–24; O2SAT 92–99
[2016-06-11] MEDS: Sodium Chloride LOK Flush 10 mL Syringe IVFLUSH SCH ×2 (00:36→09:17)
[2016-06-11 06:02] LABS: BASOPHILS % (AUTO) 0.2 % (0-3); EOSINOPHILS % (AUTO) 0.4 % (0-5); MONOCYTES % (AUTO) 10.8 % (4-12); Mean Corpuscular Hemoglobin 31.3 pg (27.0-35.0); Mean Corpuscular Volume 94.5 fL (81-100); NEUTROPHILS % (AUTO) 69.2 % (40-74); Platelet Count 195 bil/L (150-400)
[2016-06-11] MEDS: Albuterol-Ipratropium 3 mL Inhalation Solution NEB SCH ×3 (07:55→16:00)
[2016-06-11] MEDS: Potassium Chloride 20 mEq SR Tablet PO SCH (09:17)
[2016-06-11] MEDS ORDERED: APIX5TAB PO (12:08)
[2016-06-11] MEDS ORDERED: CIPR-232 PO (12:08)
[2016-06-11] MEDS ORDERED: SPIR25TA PO (12:08)
[2016-06-11] MEDS ORDERED: POTA20TA16 PO (12:08)
[2016-06-11] MEDS ORDERED: FURO40TA4 PO (12:08)
[2016-06-11] MEDS ORDERED: ATOR40TA69 PO (12:08)
[2016-06-11] MEDS ORDERED: METO-272 PO (12:08)
[2016-06-11] MEDS ORDERED: LISI-571 PO (12:08)
--- NOTE | 2016-06-11 12:19 | PCM.DIMED ---
Dalila Johnson DO 06/11/16 1219: Discharge Instructions Date of Service Jun 11, 2016 Dates of Hospitalization Jun 03, 2016 at 18:50 Discharge Diagnosis Discharge Diagnosis Acute urinary tract infection, not present on admission, ongoing Acute systolic heart CHF exacerbation likely secondary to noncompliance, present on admission, resolving New-onset atrial fibrillation, not present on admission, ongoing Acute hypotension, not present on admission, ongoing Urinary retention Acute hypoxic respiratory failure with bilateral basilar opacities seen on x-ray , present on admission, ongoing Acute nonsustained asymptomatic VT, not present on admission, resolved Acute hypokalemia likely secondary to diuresis, not present on admission, resolved Acute hyponatremia, etiology unknown, chronicity unknown, resolved Mildly elevated glucose, present on admission CAD BPH/LUTS Medication Instructions We are starting adding some new medications to your list.Here is your current medications. You need to take these medications every day. -Furosemide 40mg twice a day -Lisinopril 2.5mg daily -Potassium 20mg daily -Metoprolol 50mg twice a day -Atorvastatin 80mg daily -Eliquis 5mg twice a day -Spironolactone 12.5mg daily -Flomax 0.4mg daily. We are also sending you home with some antibiotics, called Ciprofloxacin, that you will need to take 2 times per day for 3 days. We have also removed your brooks catheter. Diet Low fat, Low Sodium, Heart Healthy Activity No restrictions Call your provider Fever or Chills, Shortness of breath, Bleeding, Chest pain, Vomitting, Excessive diarrhea, Weakness (unilateral) Patient Instructions We are starting adding some new medications to your list.Here is your current medications. You need to take these medications every day. -Furosemide 40mg twice a day -Lisinopril 2.5mg daily -Potassium 20mg daily -Metoprolol 50mg twice a day -Atorvastatin 80mg daily -Eliquis 5mg twice a day -Spironolactone 12.5mg daily -Flomax 0.4mg daily. We are also sending you home with some antibiotics, called Ciprofloxacin, that you will need to take 2 times per day for 3 days. You have an appointment with Dr Gomez to follow up about this hospitalization and to help with your new diagnosis. Your appointment is 06/28/2016 at 10:30am. You have some new issues, including congestive heart failure and likely COPD due to your smoking history. Follow-up Provider: Ld Gomez DO Follow-up with PCP in: Other (06/28/16) Provider: Michoacano Camara MD Follow-up in: 4 weeks Don Pardo MD 06/12/16 1236: Dalila Johnson DO Jun 11, 2016 12:19 Don Pardo MD Jun 12, 2016 12:36
[2016-06-11] MEDS ORDERED: MeTOProlol XL 50 mg ER24 Tablet PO SCH (20:30)
--- NOTE | 2016-06-11 20:37 | PCM.DC.MED ---
Discharge Summary Date of Service Jun 11, 2016 Dates of Hospitalization Date of Hospital Admission Jun 03, 2016 at 18:50 Date of Discharge: Jun 11, 2016 Providers: Admitting Physician: Kellen Ware MD Primary Care Physician: Quincy Avalos MD Attending Physician: Kellen Ware MD Diagnosis at Time of Discharge Diagnosis at Time of Discharge Acute urinary tract infection, not present on admission, ongoing Acute systolic heart CHF exacerbation likely secondary to noncompliance, present on admission, resolving New-onset atrial fibrillation, not present on admission, ongoing Acute hypotension, not present on admission, ongoing Urinary retention Acute hypoxic respiratory failure with bilateral basilar opacities seen on x-ray , present on admission, ongoing Acute nonsustained asymptomatic VT, not present on admission, resolved Acute hypokalemia likely secondary to diuresis, not present on admission, resolved Acute hyponatremia, etiology unknown, chronicity unknown, resolved Mildly elevated glucose, present on admission CAD BPH/LUTS Consultations Cardiology Infectious Disease Procedures XRay, CTs & MRIs PROCEDURE: X-RAY CHEST ONE VIEW, PORTABLE INDICATIONS: SHORT OF BREATH TECHNIQUE: One view of the chest was acquired. COMPARISON: [facility], , XR CHEST 2VW, 06/01/2016, 14:57. FINDINGS: Surgical changes and devices: None. Lungs and pleura: Patchy pulmonary opacities are present in the bilateral lung bases. These are slightly increased in extent on the left when compared with the study dated 06/01/16. The small right pleural effusion has decreased in size when compared with the prior study. Mediastinum: Mediastinal contours appear normal. Heart size is normal. Bones and chest wall: No suspicious bony lesions. Overlying soft tissues appear unremarkable. IMPRESSION: 1. Persistent right basilar radiopacities in slightly increased confluence of the left basilar radiopacities when compared with the prior study dated 06/01/16 suggesting worsening infection. 2. Apparent slight decrease in the size of the right pleural effusion which may be positional in nature. Dictated by: Mami Pedersen M.D. on 06/03/2016 at 16:53 Approved by: Mami Pedersen M.D. on 06/03/2016 at 16:55 Cardiac Echo Impression Interpretation Summary Normal sinus rhythm. Mildly dilated LV; normal wall thickness; there is severe global hypokinesis with akinesis of the septum. The best motion is demonstrated by basal inferolateral segment. EF is 20-25%. Restrictive filling pattern consistent with advanced diastolic dysfunction. Severely dilated atria. Mitral valve leaflets are normal; there is moderate central MR. There is moderate central tricuspid regurgitation. Estimated PA systolic pressure is 58 mm Hg assuming RA pressure of 15 mm hg. Compared to prior study performed 2006 LV is more dilated. End diastolic dimension arun from 5.4 cm to 6.1 cm. EPSS arun from 1.2 cm to 2 cm consistent with worsening cardiomyopathy. EF is down from 30-35% to 20-25%. Diastolic dysfunction progressed from stage I to stage III. MR progressed from mild to moderate. Brief History Per Dr Ware's H&P "HISTORY was OBTAINED FROM PATIENT / [facility] NOTES History of present illness 76-year-old man, 2 weeks of shortness of breath, being unable to lie flat and breathe well, edema, presents to ER with respiratory rate 30, 91% on room air. Associated cough, weakness, incontinence. No chest pain no back pain. concurrently he had been seen by Urologist for a refill of doxazosin that he had run out of since 03/2016. urologist noted the new edema ordered CXR and EKG at that time. Despite doxazosin now, ongoing nocturia wearing adult depends and poor uop. At the urologist visit 05/31/2016 he was told PVR was accepatble. baseline low BP at home but he has not seen PCP in several years. ongoing smoking, less the last 2- 3 days due to SOB and edema. dry cough, nonproductive, no sore throat. In the ER Lasix 20, aspirin 325, nitroglycerin 0.5, weight 84 kg, in 2003 83 kg , 2L O2 Review of Systems - none of the following - F/C/sick contact / wt change/ MARTINEZ / lightheaded / dizziness // acid reflux / n/v/diarrhea / bleeding/bruising / leg swelling / change in voiding / yeast infections / rash ambulates FAMILY HX CAD SOCIAL HX smoker MEDICATIONS Scheduled Aspirin (Aspirin) 81 Mg Tablet 81 MG PO HS Doxazosin (Cardura) 8 Mg Tablet 8 MG PO HS Past Medical/Surgical HX Occluded right carotid artery DC 2, diastolic/Systolic CHF / stents Cataracts BPH Right pleural effusion since 06/01/2016" Hospital Course Acute urinary tract infection, not present on admission -Urine culture growing strep enterococci -Pt discharged on Ceftriaxone 2g daily for 3 days. Acute systolic heart CHF exacerbation likely secondary to noncompliance, present on admission, resolving -Echo demonstrating decreased EF of 20-25%, with worsening MR and TR -Cardiology consulted, we appreciate their input. -Per Cardiology, Metoprolol to 50 mg twice a day, Lisinopril 2.5mg daily, Lasix to 40mg BID PO , Spironolactone 12.5mg daily.Also recommend Cardiac Rehab after DC -Patient diuresed a net of 9 L during this hospitalization New-onset atrial fibrillation, not present on admission -Per cardiology, pt to discharge on Metoprolol 100mg BID, Apixaban 5 mg BID and follow up with Cardiology in 4 wks -Cardiology cardioverted patient on 06/10/16 Acute hypotension, not present on admission -Patient denies any symptoms with this decrease in blood pressure Urinary retention -Patient has been unable to urinate, requiring in and out catheterization throughout -Brooks catheter placed 06/09 -Urine culture growing strep enterococci Acute hypoxic respiratory failure with bilateral basilar opacities seen on x-ray , present on admission -Respiratory viral panel and pneumococcal tests negative -CXR 06/07- demonstrating "Persistent pulmonary edema and interval increase in size of small right pleural effusion with persistent right basilar airspace opacity consistent with compressive atelectasis, patchy pulmonary edema and/or pneumonia." -Possible cause could be COPD( pt has 70 pack year smoking hx and continues to smoke) -ID has been consulted, and they do not suspect infectious cause, and believe issue is more likely a combination of COPD and CHF -Pt continues to require supplemental O2, Respiratory Therapy assessed the patient for this.Currently using 3 L on nasal cannula. Acute nonsustained asymptomatic VT, not present on admission, resolved -Per cardiology patient to be discharged on metoprolol 50 mg twice a day Acute hypokalemia likely secondary to diuresis, not present on admission, resolved -Pt was given given IV KCL 20, and also given PO 20meq potassium on 06/08 -Potassium has been normal -Will start patient on daily potassium, as he will be discharging on lasix. Acute hyponatremia, etiology unknown, chronicity unknown, resolved -Continues to be low, but stable -No previous records to compare if this is baseline for patient, and he does not get regular medical care Mildly elevated glucose, present on admission -A1C is normal -Recommend outpatient follow up Chronic issues CAD -Per Cardiology, continue 81 mg aspirin and start atorvastatin 80 mg daily at bedtime BPH/LUTS -Continue flomax, f/u Dr. Silver on discharge Exam Vital Signs (Last) Date Time Temp Pulse Resp B/P Pulse Ox O2 Delivery O2 Flow Rate FiO2 06/11/16 15:54 36.5 51 19 132/64 92 Nasal Cannula 2.00 Test 06/03/16 16:21 06/04/16 05:05 06/04/16 09:45 06/04/16 19:26 Hold Saleh Top Tube Received (Received) Troponin T < 0.010ug/L (0.0-0.011) Hold Urine Received (Received) Urine Legionella pneumophilia Ag Negative (Negative) Test 06/06/16 05:27 06/07/16 07:10 06/08/16 05:35 06/08/16 07:05 Pro-B-Type Natriuretic Peptide 6921pg/mL (0-486) Magnesium Level 2.0mg/dL (1.6-2.6) C-Reactive Protein 1.2mg/dL (0.0-0.5) Procalcitonin 0.06ng/mL (0.00-0.08) Lactic Acid Level 0.9mmol/L (0.4-2.0) Test 06/09/16 00:37 06/11/16 05:10 Urine Color Yellow (YELLOW) Urine Appearance Clear (CLEAR,HAZY) Urine pH 6.5 (5.0-8.0) Urine Specific [place] 1.015 (1.003-1.035) Urine Protein Tracemg/dL (NEG,TRACE) Urine Glucose (UA) Negativemg/dL (NEGATIVE) Urine Ketones Negativemg/dL (NEGATIVE) Urine Occult Blood Large (NEGATIVE) Urine Nitrite Negative (NEGATIVE) Urine Bilirubin Negative (NEGATIVE) Urine Urobilinogen 4.0mg/dL (NORMAL) Urine Leukocyte Esterase Small (NEGATIVE) Urine RBC 11-50/hpf (0-2) Urine WBC 11-50/hpf (0-5) Urine Epithelial Cells Occasional/hpf (NONE-MOD) Urine Crystals None seen (NONE SEEN) Urine Bacteria Moderate/hpf (NONE-FEW) Urine Hyaline Casts None/lpf (NONE) Urine Granular Casts None seen (NONE SEEN) Urine Waxy Casts None seen (NONE SEEN) Urine Red Blood Cell Casts None seen (NONE SEEN) Urine White Blood Cell Casts None seen (NONE SEEN) Urine Mucus Present (None Seen) Urine Trichomonas None seen (NONE SEEN) Urine Yeast None (NONE SEEN) Urinalysis Comment None Urine Culture Reflexed Indicated White Blood Count 9.2th/mm3 (3.8-10.1) Red Blood Count 4.76mil/mm3 (4.40-5.80) Hemoglobin 14.9g/dL (13.8-17.2) Hematocrit 45.0% (41.0-50.0) Mean Corpuscular Volume 94.5fL (81-100) Mean Corpuscular Hemoglobin 31.3pg (27.0-35.0) Mean Corpuscular Hemoglobin Concent 33.1% (32.0-37.0) Red Cell Distribution Width 13.5% (12.3-15.4) Platelet Count 195bil/L (150-400) Neutrophils (%) (Auto) 69.2% (40-74) Lymphocytes (%) (Auto) 19.2% (14-46) Monocytes (%) (Auto) 10.8% (4-12) Eosinophils (%) (Auto) 0.4% (0-5) Basophils (%) (Auto) 0.2% (0-3) Sodium Level 135mEq/L (134-144) Potassium Level 4.7mEq/L (3.5-5.2) Chloride Level 89mEq/L (97-108) Carbon Dioxide Level 35mmol/L (18-29) Blood Urea Nitrogen 50mg/dL (8-27) Creatinine 0.93mg/dL (0.76-1.27) Estimat Glomerular Filtration Rate 84mL/min (>59) Glucose Level 122mg/dL (60-99) Calcium Level 9.1mg/dL (8.5-10.1) Total Bilirubin 1.1mg/dL (0.0-1.2) Aspartate Amino Transf (AST/SGOT) 90U/L (0-50) Alanine Aminotransferase (ALT/SGPT) 75U/L (0-44) Alkaline Phosphatase 75U/L (25-160) Total Protein 6.3g/dL (6.4-8.4) Albumin 3.8g/dL (3.4-5.0) Discharge Medications Discharge Medications Apixaban (Eliquis) 5 Mg Tablet 5 MG PO BID Prescribed by: BARBIE GARRETT DO Atorvastatin Calcium (Atorvastatin Calcium) 40 Mg Tablet 80 MG PO HS Prescribed by: BARBIE GARRETT DO Ciprofloxacin (Cipro) 250 Mg Tablet 250 MG PO BID Prescribed by: BARBIE GARRETT DO Doxazosin (Cardura) 8 Mg Tablet 8 MG PO HS (Reported) Furosemide (Furosemide) 40 Mg Tablet 40 MG PO 0830,1630 Prescribed by: BARBIE GARRETT DO Lisinopril (Lisinopril) 5 Mg Tablet 2.5 MG PO DAILY Prescribed by: BARBIE GARRETT DO Metoprolol Succinate ER (Metoprolol Succinate ER) 50 Mg Tab.er.24h 50 MG PO BID Prescribed by: BARBIE GARRETT DO Potassium Chloride (Potassium Chloride) 20 Meq Tab.er.prt 20 MEQ PO DAILYWM Prescribed by: BARBIE GARRETT DO Spironolactone (Aldactone) 25 Mg Tablet 12.5 MG PO DAILY Prescribed by: BARBIE GARRETT DO Additional med instructions We are starting adding some new medications to your list.Here is your current medications. You need to take these medications every day. -Furosemide 40mg twice a day -Lisinopril 2.5mg daily -Potassium 20mg daily -Metoprolol 50mg twice a day -Atorvastatin 80mg daily -Eliquis 5mg twice a day -Spironolactone 12.5mg daily -Flomax 0.4mg daily. We are also sending you home with some antibiotics, called Ciprofloxacin, that you will need to take 2 times per day for 3 days. We have also removed your brooks catheter. Followup Plan Disposition: Home Discharge Diet: Low fat, Low Sodium, Heart Healthy Discharge Activity: No restrictions Patient Instructions We are starting adding some new medications to your list.Here is your current medications. You need to take these medications every day. -Furosemide 40mg twice a day -Lisinopril 2.5mg daily -Potassium 20mg daily -Metoprolol 50mg twice a day -Atorvastatin 80mg daily -Eliquis 5mg twice a day -Spironolactone 12.5mg daily -Flomax 0.4mg daily. We are also sending you home with some antibiotics, called Ciprofloxacin, that you will need to take 2 times per day for 3 days. You have an appointment with Dr Gomez to follow up about this hospitalization and to help with your new diagnosis. Your appointment is 06/28/2016 at 10:30am. You have some new issues, including congestive heart failure and likely COPD due to your smoking history. Follow-up Provider: Ld Gomez DO Follow-up with PCP in: Other (06/28/16) Provider: Michoacano Camara MD Follow-up in: 4 weeks Cardiac Rehab: Other (Recommended by Cardio) Time spent 35 minutes Attending Statement The patient was seen and examined together with Dr. Garrett on 06/11/2016 and I agree with the history, exam and plan as outlined in the note above. copies to: Ld Gomez Tara L DO Jun 11, 2016 20:37 Don Pardo MD Jun 12, 2016 12:36
[2016-06-27] MEDS ORDERED: TERA10CA5 PO (15:28)
[2016-07-04] MEDS ORDERED: TAMS0.4C98 PO (15:36)
== END 2016-06-11 17:00 | disposition home or self-care (01) | DRG 291 ==
LOC: SED 15:48 → OBSVTOIN 18:50 → MPC 18:50
PROVIDERS: ADMIT Urology; ATTEND Urology
DX: I50.21 Acute systolic (congestive) heart failure (principal); J96.01 Acute respiratory failure with hypoxia; E87.1 Hypo-osmolality and hyponatremia; I47.2 Ventricular tachycardia; N39.0 Urinary tract infection, site not specified; Z79.82 Long term (current) use of aspirin; Z98.61 Coronary angioplasty status; I25.10 Atherosclerotic heart disease of native coronary artery without angina pectoris; N40.1 Benign prostatic hyperplasia with lower urinary tract symptoms; F17.210 Nicotine dependence, cigarettes, uncomplicated; Z91.19 Patient's noncompliance with other medical treatment and regimen; E87.6 Hypokalemia; I25.5 Ischemic cardiomyopathy; B95.2 Enterococcus as the cause of diseases classified elsewhere; I95.9 Hypotension, unspecified; R33.9 Retention of urine, unspecified